=== PATIENT | male | born 1955 | race Caucasian/White ===

== ENCOUNTER → 2021-09-21 | Outpatient (CLI) | payer OTHER ==
--- NOTE | 2021-09-21 13:58 | CT ---
EXAMINATION TYPE: CT angio neck DATE OF EXAM: 09/21/2021 COMPARISON: None HISTORY: Carotid stenosis, syncope CT DLP: 424 mGycm CONTRAST: CTA cervical carotids is performed and without and with IV Contrast, patient injected with 65 ml mL o f Isovue 370. Contrast CTA of the cervical carotids was performed 3-D reconstruction imaging obtained at a separate workstation. Right carotid system: Mild plaque is seen of the right common carotid artery . Severe occlusive plaqu e right carotid bulb. Reconstitution of the occluded right ICA distally by the ECA. ECA is patent. R ight vertebral artery appears unremarkable. Left carotid system: Mild plaque is seen of the left common carotid artery. There is mild to moderat e plaque also noted at the carotid bulb. Estimated diameter reduction is 60%. ECA is patent. Left vertebral artery appears unremarkable. IMPRESSION: 1. Severe occlusive plaque right carotid bulb. Reconstitution of the occluded right ICA distally by the ECA. 2. Estimated diameter reduction Left ICA 60% NASCET criteria was used in interpretation of this exam?
== END | disposition home or self-care (01) ==
LOC: RADCTMAIN 10:22
PROVIDERS: ATTEND Internal Medicine Cardiovascular Disease
DX: I65.23 Occlusion and stenosis of bilateral carotid arteries (principal)
CPT/HCPCS: 82565; 84520; 70498; 36415; Q9967

== ENCOUNTER → 2023-09-11 | Outpatient (CLI) | payer MEDICARE ==
--- NOTE | 2023-09-11 10:52 | CT ---
EXAMINATION TYPE: CT lumbar spine wo con DATE OF EXAM: 09/11/2023 COMPARISON: 08/26/2023 HISTORY: 67-year-old male M47.26 SPONDYL WITH RADICULOP, Lower back pain for 6 months TECHNIQUE: Contiguous axial scanning of the lumbar spine without IV contrast. Coronal and sagittal re constructions performed. CT DLP: 965 mGycm Automated exposure control for dose reduction was used. FINDINGS: Degenerative bony ankylosis right SI joint. Status post wide laminectomies from L3 to S1 levels. Advanced hypertrophic facet arthropathy is present. Degenerative grade 1 retrolisthesis L1-L2, L2-L3, L3-L4, and L4-L5 with moderate degenerative disc di sease throughout. Vertebral body heights are preserved. There appears to be a component of underlying congenital spinal canal stenosis with [place] AP canal d imension of 9 mm which is at the L2 level. Disc bulging contributes to moderate to severe focal spinal canal stenosis at L2-L3 and moderate at L 1-L2. On the right, changes result in severe neuroforaminal stenosis L4-L5 and moderate at L2-L3. Mild at L 3-L4 and L5-S1. On the left, changes results in severe neuroforaminal stenosis at L4-L5 and moderate at L2-L3 and L3- L4. IMPRESSION: 1. UNDERLYING CONGENITAL SPINAL CANAL NARROWING. FOR EXAMPLE, THE [place] AP CANAL DIMENSION AT THE L2 LEVEL IS 9 MM. 2. WIDE LAMINECTOMIES FROM L3 TO S1 LEVELS. 3. ADVANCED HYPERTROPHIC FACET ARTHROPATHY AND MODERATE DEGENERATIVE DISC DISEASE THROUGHOUT. 4. DEGENERATIVE GRADE 1 RETROLISTHESIS FROM L1 THROUGH L5 LEVELS. 5. MODERATE TO SEVERE FOCAL SPINAL CANAL STENOSIS AT L2-L3 AND MODERATE AT L1-L2. 6. VARIABLE NEURAL FORAMINAL STENOSES OUTLINED ABOVE, SEVERE ON BOTH SIDES AT L4-L5.
== END | disposition home or self-care (01) ==
LOC: RADCTMAIN 08:39
PROVIDERS: ATTEND Orthopaedic Surgery
DX: M47.26 Other spondylosis with radiculopathy, lumbar region (principal); M51.16 Intervertebral disc disorders with radiculopathy, lumbar region; M43.16 Spondylolisthesis, lumbar region; M48.061 Spinal stenosis, lumbar region without neurogenic claudication; M99.73 Connective tissue and disc stenosis of intervertebral foramina of lumbar region
CPT/HCPCS: 72131

== ENCOUNTER 2024-01-01 06:14 | Day surgery (SDC) | payer MEDICARE ==
[2024-01-01] MEDS ORDERED: ALPRAZolam 0.5 MG TAB PO PRN (06:31)
[2024-01-01] MEDS ORDERED: NITROGLYCERIN SL TABS 0.4 MG TAB SUBLINGUAL PRN ×2 (06:31→09:18)
[2024-01-01] MEDS ORDERED: ALPRAZolam 0.25 MG TAB PO PRN (06:31)
[2024-01-01] MEDS: SODIUM CHLORIDE 0.9% 1,000 ML in EMPTY BAG 1 BAG IV SCH ×2 (06:54→09:40)
[2024-01-01 06:55] LABS: Glucose,Whole Blood 138 mg/dL (70-110)
[2024-01-01] MEDS ORDERED: HEPARIN SODIUM 1,000 UN/ML (10ML VL) ONE (07:16)
[2024-01-01] MEDS ORDERED: LIDOCAINE 1% INJ 10MG/ML (20 ML MDV) ONE (07:16)
[2024-01-01] MEDS ORDERED: VERAPAMIL 2.5 MG/ML 2 ML AMP ONE ×2 (07:16→08:11)
[2024-01-01] MEDS: MIDAZOLAM 2 MG/2 ML VIAL IVP ONE ×2 (07:52→08:46)
[2024-01-01] MEDS: LIDOCAINE 1% INJ 10MG/ML (20 ML MDV) SQ ONE (07:57)
[2024-01-01] MEDS: VERAPAMIL SYRINGE (5 MG/10 ML) INTRAARTER ONE (08:02)
[2024-01-01] MEDS: HEPARIN SODIUM 1,000 UN/ML (10ML VL) IVP ONE (08:03)
[2024-01-01] MEDS: fentaNYL (PF) 50 MCG/ML 2 ML AMP IVP ONE (08:03)
[2024-01-01] MEDS ORDERED: fentaNYL (PF) 50 MCG/ML 2 ML AMP ONE (08:04)
[2024-01-01] MEDS ORDERED: NITROGLYCERIN SL TABS 0.4 MG TAB SUBLINGUAL ONE (08:04)
[2024-01-01] MEDS: NITROGLYCERIN SL TABS 0.4 MG TAB SUBLINGUAL ONE (08:05)
[2024-01-01] MEDS: IOPAMIDOL-370 100ML BTL INJ ONE ×3 (08:06→09:16)
[2024-01-01] MEDS ORDERED: TICAGRELOR 90 MG TAB ONE (08:15)
[2024-01-01] MEDS: hydrALAZINE HCL 20 MG/ML 1 ML VIAL IVP ONE (08:17)
[2024-01-01] MEDS ORDERED: hydrALAZINE HCL 20 MG/ML 1 ML VIAL ONE (08:17)
[2024-01-01] MEDS: TICAGRELOR 90 MG TAB PO ONE (08:17)
[2024-01-01] MEDS: HYDROmorphone 0.5 MG/0.5 ML SYRINGE IVP ONE (08:26)
[2024-01-01] MEDS: NITROGLYCERIN 1000MCG/10ML SYRINGE INTRACORON ONE (09:01)
[2024-01-01] MEDS ORDERED: ATROPINE SULFATE 0.1 MG/ML 10ML SYRINGE IV PRN (09:18)
[2024-01-01] MEDS ORDERED: RX INFO: IV CONTRAST WAS GIVEN 1 EACH MISC MISCELLANE PRN (09:18)
[2024-01-01] MEDS ORDERED: MAG HYDROX/AL HYDROX/SIMETH 30 ML CUP PO PRN (09:18)
[2024-01-01] MEDS ORDERED: ZOLPIDEM 5 MG TAB PO PRN (09:18)
[2024-01-01] MEDS: ASPIRIN 325 MG TAB PO STA (09:40)
[2024-01-01 11:43] VITALS: RESP 16
[2024-01-01 14:39] VITALS: BMI 35.2
[2024-01-01] MEDS: ACETAMINOPHEN TAB 500 MG TAB PO PRN (17:38)
--- NOTE | 2024-01-01 18:48 | P.PCN ---
Date of Procedure: 01/01/24 Operative Findings: CARDIAC CATHETERIZATION AND PERCUTANEOUS CORONARY INTERVENTION PERFORMING PHYSICIAN: Luis Shultz MD, [facility] PROCEDURE PERFORMED: 1. Selective right and left coronary angiogram 2. Left heart catheterization 3. Successful stenting of proximal LAD using 3.5 x 33 mm Xience ROME with an excellent angiographic results 4. Successful stenting of the mid LAD using 2.5 x 23 mm Xience ROME with an excellent angiographic results 5. Adjunctive use of intravascular imaging 6. Ultrasound guided access of the right radial artery INDICATION: This is a 68-year-old gentleman with diabetes and hypertension and dyslipidemia and carotid atherosclerosis was seen in the office recently for preoperative cardiac assessment before noncardiac surgery. He was symptomatic with shortness of breath with exertion and he underwent myocardial perfusion imaging stress test showed anterior ischemia. In the light of that a heart catheterization was advised COMPLICATION: None APPROACH: Right radial artery LEVEL OF SEDATION: Moderate with the sedation time off 68 minutes PROCEDURE DESCRIPTION: After obtaining an informed consent the patient was brought to the cardiac cardiac catheterization technician. The right radial artery was cannulated using puncture technique under ultrasound guidance the micropuncture wire passed easily then I placed a 6- [place] sheath in the right radial artery. Subsequently I gave the patient 2 mg of verapamil intra-arterial and heparin intravenous was continuous ACT monitoring. Selective right and left coronary angiogram performed using JR4 and JL 3.5 catheters. Left heart catheterization was performed using the JR4 annmarie ter which across aortic valve then I did pulled back across the valve. After that I did intervene on the left anterior descending artery. SELECTIVE CORONARY ANGIOGRAM: The right coronary artery: Large caliber vessel and a dominant vessel. The RCA is calcified. The RCA has intermediate disease in the midportion appears to be in the range of 50%. Left main: Calcified with mild disease appears to be in the range of 30%. 4 cassettes into an LCx and LAD The left circumflex: Large caliber vessel and nondominant dominant vessel. The proximal LCx is angiographically normal. Gives rise into an OM1 which has mild disease by the proximal portion. Then OM 2 appears to be angiographically normal. The circumflex continue after that as a small to medium caliber vessel in the AV groove The left anterior descending artery: Large caliber vessel. The proximal LAD appears to have a tight lesion in the range of 70-80%. The mid LAD also appears to be disease up to about 70-80%. The LAD distally appears to have mild disease only. HEMODYNAMICS: The LVEDP was 20 mmHg was no significant gradient across aortic valve PCI OF THE LAD: Anticoagulation was initiated using heparin was continuous ACT monitoring. Subsequently attempting engaging the left main using CLS 3.5 guiding catheter was unsuccessful but was successful using JL 3.5 guiding catheter. I wire the LAD using a whisper wire. After that intravascular ultrasound catheter was advanced but only to the proximal LAD and could not advanced further to the mid LAD because the LAD was extremely calcified. I was able to obtain a diameter of the LAD around 3.5 mm proximally but the LAD was also extremely calcified. Pre dilatation initially was performed using 2 mm noncompliant balloon but attempting advancing 2.5 mm noncompliant balloon was an successful. Attempting advancing the balloon using guide liner also was unsuccessful. At that point I decided to wire the LAD using a run-through wire as a garland wire. I was able at that point to advance 2.5 mm x 15 mm noncompliant balloon over the run-through wire with a garland wire into place. Balloon angioplasty was performed using the 2.5 mm noncompliant balloon to the mid and proximal left anterior descending artery. After that I did advance 3.0 x 33 mm stent to the proximal left anterior descending artery with a stent was positioned under fluoroscopy guidance and deployed after the garland wire was pulled out. After that post dietitian of the proximal portion of the stent was performed using 3.5 mm noncompliant balloon. An angiogram was performed and showed a flow-limiting dissection involving the mid LAD distal to the stented segment and likely relat ed to edge dissection. I decided to cover that with the stent. I deployed 2.5 x 23 mm stent distal to the first stent with about 2 mm overlap between the first and second stents. The area of overlap was postdilated using the stent balloon. After that an angiogram was performed and at that point I decided to postdilated proximal to midportion of the first stent using 3.5 mm noncompliant balloon. I was able to achieve that over the run-through wire. Final angiogram showed excellent angiographic results and the procedure was completed was no complication CONCLUSION: Critical disease involving the proximal and mid left anterior descending artery. I performed successful stenting of the proximal and mid LAD as described above Mild disease involving the left main coronary artery Intermediate disease involving the right coronary artery POSTPROCEDURE MANAGEMENT: 1. Dual antiplatelet therapy using aspirin and Brilinta for at least 6 month 2. Aggressive cholesterol control 3. Follow-up with the patient
[2024-01-01] MEDS: TICAGRELOR 90 MG TAB PO SCH (20:12)
[2024-01-01] MEDS: CARBIDOPA-LEVODOPA 25-100 MG 1 EACH TAB PO SCH (20:12)
[2024-01-02 03:50] VITALS: PULSE 63
[2024-01-02 08:19] VITALS: BP 190/78; TEMP 97.8
[2024-01-02] MEDS: ASPIRIN 81 MG PO SCH (08:19)
[2024-01-02] MEDS: LORATADINE 10 MG TAB PO SCH (08:19)
[2024-01-02] MEDS: lisinopriL 20 MG TAB PO SCH (08:19)
[2024-01-02] MEDS: PANTOPRAZOLE 40 MG TABLET PO SCH (08:19)
[2024-01-02] MEDS: PARoxetine 10 MG TAB PO SCH (08:19)
--- NOTE | 2024-01-02 09:40 | P.DS ---
Providers Attending physician: Luis Shultz Consults: 01/01/24 09:18 Consult Physician Routine Consulting Provider: [facility] Consult Reason/Comments: Post Interventional patient Do you want consulting provider notified?: Already Contacted Primary care physician: Frannie Snell [facility] Course: The patient is a 68-year-old gentleman who underwent yesterday heart catheterization and stenting of the left anterior descending artery proximally and also in the midportion. He was seen and evaluated this morning. He is asymptomatic and he is hemodynamically stable. The right radial site is soft and nontender. No bruises. He is going to be discharged home on dual antiplatelet therapy with replacing the Plavix with brilinta and adding statin to the current medical regimen and also discontinue metformin for 48 hours. The examination is remarkable for regular rhythm with clear breathing sounds bilaterally and no edema was noted in the lower extremities the patient would be seen in the office in a week from now. Plan - Discharge Summary Discharge Rx Participant: No New Discharge Prescriptions: New Ticagrelor [Brilinta] 90 mg PO BID #180 tab Atorvastatin Calcium [Lipitor] 80 mg PO DAILY #90 tab Continue lisinopriL [Zestril] 20 mg PO QAM PARoxetine [Paxil] 10 mg PO QAM Carbidopa-Levodopa 25-100 mg [Sinemet 25-100 mg] 1 each PO HS Acetaminophen Tab [Tylenol] 1,000 mg PO Q6HR PRN PRN Reason: Pain Aspirin [Adult Low Dose Aspirin EC] 81 mg PO DAILY PRN PRN Reason: Per Protocol Pantoprazole [Protonix] 40 mg PO QAM Cetirizine HCl 10 mg PO QAM Discontinued Clopidogrel [Plavix] 75 mg PO QAM metFORMIN HCL 1,000 mg PO QAM Discharge Medication List Acetaminophen Tab [Tylenol] 1,000 mg PO Q6HR PRN 12/29/23 [History] Carbidopa-Levodopa 25-100 mg [Sinemet 25-100 mg] 1 each PO HS 12/29/23 [History] Cetirizine HCl 10 mg PO QAM 12/29/23 [History] PARoxetine [Paxil] 10 mg PO QAM 12/29/23 [History] Pantoprazole [Protonix] 40 mg PO QAM 12/29/23 [History] lisinopriL [Zestril] 20 mg PO QAM 12/29/23 [History] Aspirin [Adult Low Dose Aspirin EC] 81 mg PO DAILY PRN 01/01/24 [History] Atorvastatin Calcium [Lipitor] 80 mg PO DAILY #90 tab 01/02/24 [Rx] Ticagrelor [Brilinta] 90 mg PO BID #180 tab 01/02/24 [Rx] Follow up Appointment(s)/Referral(s): Luis Shultz MD [STAFF PHYSICIAN] - 1 Week
[2024-01-02 10:57] LABS: African American GFR (CKD) >90 (>60 ml/min/1.73 sqM); Non-African American GFR(CKD) 85 (>60 ml/min/1.73 sqM)
== END 2024-01-02 12:30 | disposition home or self-care (01) ==
LOC: CATHCVL 06:14 → 6NMEDSUR 09:15 → CATHCVL 01-02 12:30
PROVIDERS: ATTEND Internal Medicine Interventional Cardiology
DX: Z01.810 Encounter for preprocedural cardiovascular examination (principal); E11.9 Type 2 diabetes mellitus without complications; E78.5 Hyperlipidemia, unspecified; I10 Essential (primary) hypertension; Z79.02 Long term (current) use of antithrombotics/antiplatelets; Z79.84 Long term (current) use of oral hypoglycemic drugs; Z79.899 Other long term (current) drug therapy; Z95.5 Presence of coronary angioplasty implant and graft
CPT/HCPCS: 99152; 99153 ×3; 94760; 92978; 93458; 76937; 82565; C9600; C1769 ×4; C1887 ×3; C1894; C1753; C1874 ×2; C1725 ×3; J2250; J0360; J2001; J3010; J1644; J1170; Q9967; J2305

== ENCOUNTER → 2024-03-22 | Outpatient (CLI) | payer MEDICARE ==
--- NOTE | 2024-03-24 08:44 | US ---
EXAMINATION TYPE: US kidneys/renal and bladder DATE OF EXAM: 03/22/2024 COMPARISON: NONE CLINICAL INDICATION: Male, 68 years old with history of R31.0 GROSS HEMATURIA; Gross hematuria that h as since gone away, no pain, no h/o stones EXAM MEASUREMENTS: Right Kidney: 10.3 x 4.1 x 4.8 cm Left Kidney: 10.9 x 4.8 x 6.5 cm Right Kidney: No hydronephrosis or masses seen Left Kidney: No hydronephrosis or masses seen Bladder: wnl Bilateral Jets seen: Yes There is no evidence for hydronephrosis at this point in time. No nephrolithiasis is seen. No ann-marie s are identified. The urinary bladder is anechoic. Bilateral ureteral jets are seen. There is mild cortical thinning and increased echogenicity of the cortices suggestive of possibly mil d medical renal disease. IMPRESSION: Possible mild medical renal disease as described above. No hydronephrosis, solid renal mass or calcul us bilaterally.
== END | disposition home or self-care (01) ==
LOC: RADUSWWP 16:10
PROVIDERS: ATTEND Urology
DX: R31.0 Gross hematuria (principal)
CPT/HCPCS: 76770

== ENCOUNTER → 2024-05-23 | Outpatient (CLI) | payer MEDICARE ==
--- NOTE | 2024-05-24 10:02 | MR ---
EXAMINATION TYPE: MR lumbar spine wo con DATE OF EXAM: 05/23/2024 COMPARISON: 08/26/2023 HISTORY: Lower back pain, radiates into buttocks. TECHNIQUE: Multiplanar, multisequence images of the lumbar spine were acquired without IV contrast. L1-L2: Stable Moderate disc desiccation with moderate subligamentous disc bulge which effaces the heath tral thecal sac. Subligamentous herniation difficult to exclude. There is mild central stenosis noted with trefoiling of the cauda equina. L2-L3: Stable Moderate disc desiccation with subligamentous disc herniation. There is moderate centra l stenosis and bilateral neural foraminal encroachment and lateral recess stenosis. L3-L4: Decompressive laminectomy changes noted. Moderate disc desiccation and posterior disc bulge. E ffacement of the ventral thecal sac without central stenosis. Facet joint arthropathy. No disc hernia tion. L4-L5: Decompressive laminectomy changes noted. Moderate disc desiccation and posterior disc bulge. E ffacement of the ventral thecal sac without central stenosis. Facet joint arthropathy. No disc hernia tion. L5-S1: Decompressive laminectomy. No significant degenerative disc disease. No disc herniation or marybel tral stenosis. No foraminal encroachment appreciated. Lumbar segments are intact. No paraspinal masses are identified. Conus medullaris has a normal appe arance. IMPRESSION: 1. Stable central stenosis at the L1-L2. 3. Postoperative changes L3-4 through L5-S1.
== END | disposition home or self-care (01) ==
LOC: RADMRIMAIN 12:54
PROVIDERS: ATTEND Orthopaedic Surgery
DX: M48.061 Spinal stenosis, lumbar region without neurogenic claudication (principal); T81.9XXA Unspecified complication of procedure, initial encounter
CPT/HCPCS: 72148

== ENCOUNTER → 2024-11-01 | Outpatient (CLI) | payer MEDICARE ==
[2024-11-01 14:58] LABS: HCT 43.7 % (39.6-50.0); HGB 13.8 g/dL (13.0-17.0); MCHC 31.6 g/dL (32.0-37.0); MCV 91.8 FL (80.0-97.0); NRBC Per 100 WBC 0 X 10*3/uL (0.00-0.01); Platelet Count 286 X 10*3/uL (140-440); RBC 4.76 X 10*6/uL (4.40-5.60); RDW 12.8 % (11.5-14.5)
[2024-11-01 15:19] LABS: BUN/Creat Ratio 12.67 Ratio (12.00-20.00); Blood Urea Nitrogen 15.2 mg/dL (9.0-27.0); Calcium 9.8 mg/dL (8.7-10.3); Carbon Dioxide 22.3 mmol/L (21.6-31.8); Chloride 100 mmol/L (96-109); Glucose 175 mg/dL (70-110); Potassium 4.7 mmol/L (3.5-5.5); Sodium 138 mmol/L (135-145)
== END | disposition home or self-care (01) ==
LOC: LABPAT 12:15
PROVIDERS: ATTEND Orthopaedic Surgery
DX: Z01.812 Encounter for preprocedural laboratory examination (principal); M48.05 Spinal stenosis, thoracolumbar region; M47.26 Other spondylosis with radiculopathy, lumbar region; Z22.322 Carrier or suspected carrier of Methicillin resistant Staphylococcus aureus
CPT/HCPCS: 80048; 85027; 85610; 86850; 86900; 86901; 87070

== ENCOUNTER 2024-11-03 05:38 | Day surgery (SDC) | payer MEDICARE ==
[~2024-11-03 05:38] MED LIST: TRANEXAMIC 1,000 MG/100ML-NACL 1,000 MG in SALINE 1 100ML.BAG IVPB PRN
[2024-11-03] MEDS ORDERED: LIDOCAINE 1% (10MG/ML) FOR IV START INTRADERMA PRN (06:04)
[2024-11-03] MEDS: ACETAMINOPHEN TAB 500 MG TAB PO PRN (07:15)
[2024-11-03] MEDS: GABAPENTIN 300 MG CAP PO PRN (07:15)
[2024-11-03] MEDS: ONDANSETRON 4 MG/2 ML VIAL IVP PRN (07:17)
[2024-11-03] MEDS: DEXAMETHASONE SOD PHOSPHATE 4 MG/ML 1 ML VIAL IV ONE (07:17)
--- NOTE | 2024-11-03 07:17 | P.ANPRN ---
Procedure Note - Anesthesia - Invasive Line Left Arterial Line Time Out Performed: Yes Date of Procedure: 11/03/24 Time of Procedure: 07:00 Location of Patient: PreOp Preparation: Sterile Prep Arterial Line Location: Radial Ultrasound Used: Yes Purpose - Visualization and Identification of Vasculature: Yes Image Stored and Saved: Yes Narrative: Invasive line placement per sterile protocol utilized.[id number]
--- NOTE | 2024-11-03 07:23 | P.HPOR ---
History of Present Illness H&P Date: 11/03/24 Date: 11/03/23 : 07:14am Title: [facility] PRE-OPERATIVE HISTORY AND P JEN Age: 68 year Height: 5'11" Weight: 245 lbs BMI: 34.17 kg/m2 Occupation: Retired VAS: 8 CC: Pre-operative evaluation for T12-L3 laminectomy HISTORY: Mr. Jones presents to the office today for pre-operative evaluation. The patient reports worsening symptoms since his last visit. While he experienced some improvement during the summer months, his condition has significantly deteriorated. He describes persistent throbbing, burning pain throughout his entire low back that now radiates more intensely down into the bilateral lower extremities, through his thighs and into his feet, with a sharp, shooting quality. His leg pain continues to be associated with numbness and tingling bilaterally, and he reports progressive bilateral leg weakness. The patient continues to have significant difficulty completing regular activities of daily living due to his worsening symptoms. He reports severe sleep disturbances related to his ongoing pain and associated symptoms. Previous conservative tr eatment measures have provided only mild, temporary relief. He continues taking OTC Tylenol for symptom management. The patient denies any f/c/sob/cp, perineal numbness or tingling, bowel or bladder incontinence/retention. Patient remains ambulatory independently. The patients' past social, medical, family, surgical history, as well as review of systems, have been reviewed. Please refer to the Neurosurgery History and Physical form that has been scanned into our electronic medical record system. 16 points review of systems completed and as stated in HPI, all other systems reviewed are negative. PAST TREATMENTS: PAST IMAGING: - Yes - reviewed again today, findings confirmed TRAUMA RELATED: - No WORK RELATED: - No PT IN LAST 6 MONTHS: - Yes; no relief PHYSICIAN DIRECTED HOME EXERCISE PROGRAM: - Yes; no relief ACTIVITY MODIFICATION: - Yes MEDICATIONS: - OTC Tylenol ALTERNATIVE INTERVENTIONS (CHIROPRACTIC, ACUPUNCTURE, MASSAGE, RICE): - Yes (home heat/ice therapies & rest); mild, temporary relief BRACING: - No INJECTIONS (DESI, TF, RFA): - Yes x5-6 lumbar injections at pain management (no relief) - h/o lumbar rhizotomy; no relief MEDICAL HISTORY: Past Medical History: Reviewed, see appropriate section of the chart for details. Past Spine Surgical History: None Social History: Reviewed, see appropriate section of the chart for details. Family History: Reviewed, see appropriate section of the chart for details. Current Medications: Rx: atorvastatin 40 mg tablet Ref: 0 Instructions: take 1 tablet (40 mg) by oral route once daily Rx: carbidopa-levodopa Ref: 0 Rx: cetirizine 10 mg tablet Ref: 0 Instructions: take 1 tablet (10 mg) by oral route once daily Rx: hydroCHLOROthiazide 12.5 mg capsule Ref: 0 Instructions: take 1 capsule (12.5 mg) by oral route once daily Rx: lisinopriL 20 mg tablet Ref: 0 Instructions: take 1 tablet (20 mg) by oral route once daily Rx: metFORMIN 1,000 mg tablet Ref: 0 Rx: pantoprazole 40 mg tablet,delayed release Ref: 0 Instructions: take 1 tablet (40 mg) by oral route once daily Rx: PARoxetine 10 mg tablet Ref: 0 Rx: TylenoL Ref: 0 Rx: Brilinta Ref: 0 PHYSICAL EXAM: General: AOX3, NAD, Well hydrated, Well nourished HEENT: No lumps or masses Extremities: No color changes, no pooling INTEGUMENT: Appearance: Normal color and turgor Surgical Incisions: None Hairy Patches: ABSENT Dorsal Skin Dimples: Normal [employer] spots: ABSENT PALPATION: TTP Midline: NO Paracervical: NO Parathoracic: NO Paralumbar: YES SIJ TESTING: TTP (NONE) Nigel's Finger: - FABER4: - Compression: - | Distraction: - Thigh thrust: - | Hip thrust: - POSTURAL BALANCE: Coronal: BALANCED Sagittal: BALANCED Shoulder height: LEVEL Pelvic Girdle: LEVEL ROM AND APPEARANCE: Neck: UNRESTRICTED Lumbar: RESTRICTED Shoulders: Symmetrical Hips: Symmetrical Knees: Symmetrical Hands: Symmetrical Feet: Symmetrical VASCULAR STATUS: RUE- 2 LUE-2 RLE-2 LLE-2 Edema: NONE NEUROLOGICAL EXAMINATION: Mental Status: Awake, alert, oriented fully with normal attention, concentration and memory. Fluent appropriate speech. CRANIAL NERVES: I: Olfactory not tested. II: Visual acuity normal, no visual field deficit noted with confrontation. III,IV: Normal pupillary reflexes & intact extraocular movements without nystagmus. V,: Intact symmetrical facial sensation. VII: Intact symmetrical facial motor movementVIII: Hearing intact. IX,X: Intact gag, swallow, & normal voice. XI: Sternocleidomastoid, trapezius function intact. XII: Tongue midline with normal movements. TENSIONING: L'HERMITTE'S SIGN NEG SPURLUNG'S SIGN NEG CUBITAL COMPRESSION NEG TINELS AT WRIST NEG SLR/CROSSED SLR POS MOTOR EXAM (0-5/5, NT) Muscle appearance: Symmetrical, without signs of atrophy or dystrophy UPPER EXTREMITY RIGHT LEFT Shoulder Abduction 5 5 Biceps 5 5 Triceps 5 5 Wrist Extension 5 5 Hand Intrnsics 5 5 [employer] 5 5 LOWER EXTREMITY RIGHT LEFT Hip Flexion 4 4- Knee Extension 4 4 Knee Flexion 4 4 Dorsiflexion 4 4+ Plantarflexion 5 5 EHL 5 5 FHL 5 5 REFLEXES (0-4/2, NT): RIGHT LEFT Bicep 2 2 Brachioradialis 2 2 Tricep 2 2 Patellar 2 2 Achilles 2 2 PATHOLOGICAL REFLEXES: RIGHT LEFT CARLOS'S ABSENT ABSENT CLONUS ABSENT ABSENT BABINSKI ABSENT ABSENT Rectal Tone: INTACT SENSATION (0-4, NT): RUE-2 LUE-2 RLE- 2 LLE-2 Dermatomal deficit: L1-3 b/l GAIT AND FUNCTIONAL EVALUATION: -Ambulatory aids - INDEPENDENT - Romberg's test - NEG - Hand and finger dexterity intact bilaterally? YES - Dysdiadochokinesia examination negative bilaterally? YES - Toe heel walk / heel-toe walk intact while maintaining satisfactory balance? YES - Squatting/straightening w/o assistance to a min of 60 degree knee flexion? YES - Single leg stance: ABLE - Trendelenburg sign NEGATIVE B/L IMAGING STUDIES FINDINGS XRAY Prior imaging reviewed and findings confirmed CT Prior imaging reviewed and findings confirmed MRI Prior imaging reviewed and findings confirmed IMPRESSION: It was my pleasure to have seen and examined Mr. Jones for his pre-operative evaluation. I reviewed the patient's clinical syndrome, physical findings, and imaging studies during the appointment today. It is my impression that the patient has a diagnosis of: 1. 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 Low back pain 3. Neurogenic claudication PLAN: THERAPIES -Cont with ice as warranted -Cont with supplementation Vit D, Vit C, Ca2+, High protein diet -OK for massage or other alternative treatment modalities as able. If it exacerbates your sx do not continue ACTIVITY -Avoid excessive or heavy BLPPT MEDICATIONS -Take as directed -Cont home medications as directed by your PCP. Check with your PCP for any medication interactions or issues if needed. IMAGING -Prior imaging reviewed and findings confirmed. No additional imaging needed at this time. SURGICAL RECOMMENDATION -Proceed with T12-L3 laminectomy as planned DISCUSSION: The patient's condition has worsened since previous visits, with increased pain radiating from his low back through his thighs and into his feet. While he experienced some improvement during the summer months, his symptoms have significantly deteriorated. Given the progression of symptoms and confirmation of imaging findings, we will proceed with the planned T12-L3 laminectomy with possible fusion L2-3. The patient continues to understand all risks, benefits, and alternatives to the procedure and wishes to proceed. The patient has been cleared for surgery and understands all pre-operative instructions. All questions have been answered to their satisfaction. FOLLOW UP: Post Procedure PATIENT EDUCATION: Medications Reviewed: YES Thank you again for allowing us to be part of your patient's care. Please don't hesitate to contact me if you have any further questions. Signed and authenticated by: Wilfredo Pulliam [facility] [address] [place] [address] This message is confidential, intended only for the named recipient(s) and may contain information that is privileged or exempt from disclosure under applicable law. If you are not the intended recipient(s), you are notified that the dissemination, distribution or copying of this information is strictly prohibited. If you received this message in error, please notify the sender then delete this message. # SIGNED BY Wilfredo Juares (GOO) 11/03/2023 07:14AM Past Medical History Past Medical History: Diabetes Mellitus, Hyperlipidemia, Hypertension, Osteoarthritis (OA), Pneumonia, Prostate Disorder, Syncope Additional Past Medical History / Comment(s): Recent test last week, Dec 21- showed leaking valve, arthritis to back, enlarged prostate, "I passed out before they dicovered I had a blockage to my caratid artery 2 years ago, NIDDM , peptic ulcer,restless legs. History of Any Multi-Drug Resistant Organisms: None Reported Past Surgical History: Back Surgery, Heart Catheterization With Stent Additional Past Surgical History / Comment(s): Bx of prostate, Lt carotid endarterectomy. Past Anesthesia/Blood Transfusion Reactions: No Reported Reaction Additional Past Anesthesia/Blood Transfusion Reaction / Comment(s): no blood tx hx Date of Last Stent Placement:: 12/2023 Smoking Status: Never smoker - Past Family History Father History Unknown: Yes Medications and Allergies Home Medications Medication Instructions Recorded Confirmed Type Acetaminophen Tab [Tylenol] 1,000 mg PO Q6HR PRN 12/29/23 11/03/24 History Carbidopa-Levodopa 25-100 mg 1 each PO HS 12/29/23 11/03/24 History [Sinemet 25-100 mg] Cetirizine HCl 10 mg PO QAM 12/29/23 11/03/24 History PARoxetine [Paxil] 10 mg PO QAM 12/29/23 11/03/24 History Pantoprazole [Protonix] 40 mg PO QAM 12/29/23 11/03/24 History lisinopriL [Zestril] 20 mg PO QAM 12/29/23 11/03/24 History Aspirin [Adult Low Dose Aspirin EC] 81 mg PO DAILY 01/01/24 11/03/24 History Atorvastatin Calcium [Lipitor] 80 mg PO DAILY #90 tab 01/02/24 11/03/24 Rx Ticagrelor [Brilinta] 90 mg PO BID #180 tab 01/02/24 11/03/24 Rx metFORMIN HCL 1,000 mg PO BID 10/31/24 11/03/24 History Allergies Allergy/AdvReac Type Severity Reaction Status Date / Time No Known Allergies Allergy Verified 11/03/24 06:16 Physical Examination Osteopathic Statement: *. No significant issues noted on an osteopathic structural exam other than those noted in the History and Physical/Consult.
[2024-11-03 07:24] LABS: Glucose,Whole Blood 133 mg/dL (70-110)
[2024-11-03] MEDS ORDERED: LIDOCAINE 1% INJ 10MG/ML (20 ML MDV) ONE (07:30)
[2024-11-03] MEDS ORDERED: NEOSTIGMINE 1 MG/ML 10 ML VIAL ONE (07:30)
[2024-11-03] MEDS ORDERED: ROCURONIUM 10 MG/ML (5 ML VIAL) IV ONE (07:30)
[2024-11-03] MEDS ORDERED: ePHEDrine 50 MG/ML 1 ML VIAL ONE (07:30)
[2024-11-03] MEDS ORDERED: PHENYLEPHRINE 10 MG/ML VIAL ONE (07:30)
[2024-11-03] MEDS ORDERED: SUCCINYLCHOLINE CHLORIDE 200 MG/10 ML VIAL IV ONE (07:30)
[2024-11-03] MEDS ORDERED: fentaNYL (PF) 50 MCG/ML 2 ML AMP ONE (07:30)
[2024-11-03] MEDS ORDERED: PROPOFOL 10 MG/ML 20 ML VIAL IV ONE (07:30)
[2024-11-03] MEDS ORDERED: GLYCOPYRROLATE 0.2 MG/ML 2 ML VIAL ONE (07:30)
[2024-11-03] MEDS ORDERED: KETAMINE HCL IN 0.9 % NACL 50 MG/5 ML SYRINGE ONE (07:30)
[2024-11-03] MEDS: IV FLUID CONTINUATION 1,000 ML IV ONE (07:36)
[2024-11-03] MEDS: MIDAZOLAM 2 MG/2 ML VIAL IV ONE (07:46)
[2024-11-03] MEDS: THROMBIN (BOVINE) 5,000 UNIT VIAL TOPICAL ONE (08:20)
[2024-11-03] MEDS: LACTATED RINGERS 1,000 ML IV ONE ×2 (09:30→10:22)
[2024-11-03] MEDS: ceFAZolin 3,000 MG in SODIUM CHLORIDE 0.9% IRRIGATIO 3,000 ML IRRIGATION ONE (09:37)
[2024-11-03] MEDS: GENTAMICIN 80 MG in SODIUM CHLORIDE 0.9% IRRIGATIO 3,000 ML IRRIGATION ONE (09:38)
[2024-11-03] MEDS: BUPIVACAINE (PF) 0.5% 30 ML VIAL SQ ONE (10:10)
[2024-11-03] MEDS: LIDOCAINE 2%-EPI 1:100,000 20 ML VIAL SQ ONE (10:11)
--- NOTE | 2024-11-03 10:38 | P.OP ---
Date of Procedure: 11/03/24 Preoperative Diagnosis: 1. STENOSIS T12-L3, MODERATE TO SEVERE 2. 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 NEUROGENIC CLAUDICATION 4. LE RADICULOPATHY 5. LE WEAKNESS 6. LOW BACK PAIN Postoperative Diagnosis: 1. STENOSIS T12-L3, MODERATE TO SEVERE 2. 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 NEUROGENIC CLAUDICATION 4. LE RADICULOPATHY 5. LE WEAKNESS 6. LOW BACK PAIN Procedure(s) Performed: 1. L2-3 POSTEROLATERAL AND INTERBODY FUSION 2. L2-3 NONSEGMENTAL INSTRUMENTATION 3. T12-L3 BILATERAL LAMINECTOMY. WITH PARTIAL MEDIAL FACETECTOMY AND FORAMINOTOMY AT T12-L1; L1-2 AND COMPLETE FACETECOMTY AND FORAMINOTOMY AT L2-3 DUE TO STENOSIS AND NEED FOR FURTHER DECOMPRESSION. THIS WOULD CAUSE INSTABILITY IN THE SPINE WHICH IS THE REASON FOR THE FUSION AND STABILIZATION. 4. INSERTION OF BIOMECHANICAL DEVICE L2-3, CAGE X1 Implants: -JANES EVEREST RODS AND SCREWS -JANES TRITANIUM 9MM CAGE -DBM, AUTOGRAFT, ALLOGRAFT Anesthesia: NANDOA Surgeon: Wilfredo Juares Prep Room Supervisor #1: Bassam Coreas (WAS PRESENT AND ASSISTED WITH ALL ASPECTS OF THE CASE FROM POSITION TO DRESSING PLACEMENT) Estimated Blood Loss (ml): 120 IV fluids (ml): 1,200 Urine output (ml): 300 Pathology: other (L2-3 INTERVERTEBRAL DISC) Condition: stable Disposition: PACU Indications for Procedure: Spine Surgery Clinical and Risk Review Hiral Jones is a 68-year-old male presenting for evaluation of low back pain bilateral hip pain and leg pain as well as groin pain. It was my pleasure to have seen and examined Hiral Jones. In our visit today we have had a chance to go over subjective complaints, physical examination findings and treatments including the natural course history without intervention and various interventional options. The patients imaging demonstrates severe stenosis with spondylosis L2-L3 with stenosis T12-L1 L1-L2 facet overgrowth as well as facet hypertrophy ligamental hypertrophy status post laminectomy L3-L5 with exuberant scar formation L2-3 L3- 4. No acute fracture dislocation or lesion noted. On physical exam, Hiral demonstrates neurogenic claudication lower extremity radiculopathy pain low back pain pressure feeling clicking feeling pain with sidebending and rotation as well as flexion. Pain that travels down the front of his legs and into his feet. Reasonable strength in his bilateral lower extremities however is decreased as 4 - to 4/5 in all major muscle groups. Negative clonus Babinski's and Oly's. I have explained to the patient that as their condition progresses it will cause further neurological deficits and eventual paralysis. Based on the patients imaging, physical exam, and the rapid progression and disabling nature of their symptoms, at this time I recommend surgery in the form or a: T12-L3 decompressive laminectomy with possible fusion L2-L3. I discussed the risk and benefits of this procedure at length with Hiral Jones. The patient agreed to considered pursuing the procedure abovementioned. Prior to surgery, she should follow up with her PCP (Cardio, ID, IM etc) for clearance. Questions were invited and answered, and the patient wishes to proceed as outlined below. I discussed with Hiral at length the possibility of fusion at L2-L3 due to the need for decompression that would destabilize the spine at this level. He understood and was comfortable with this. Currently, I am recommendin. T12-L3 decompressive laminectomy with possible fusion L2-L3 2. Follow up with PCP for surgical clearance 3. Review of surgical risks and benefits as well as an educational packet on the proposed surgical procedure. Risks: All surgical procedures come with inherent risks, including those related to positioning, anesthesia, intraoperative findings, and postoperative complications. It is important to understand that surgery does not come with any guarantee of a successful outcome as complications and adverse events are always possible. The patient was given a handout in office today discussing the surgical procedure and risks associated with the intervention, both of which were discussed with the patient. These risks include but are not limited to the following: * Experiencing same, different or even worse symptoms in back, neck, arms, or legs compared to before surgery. * Requiring further surgery or other forms of treatment presently or at some time in the future at same or other levels of the intended spine surgery. * On an extreme but fortunately relatively rare basis severe complication such as blindness, stroke, heart attack, temporary and/or permanent nerve injury, paralysis, coma, or may occur, sometimes without known explanati on. * Surgical complications may include but are not limited to risk of infection, fluid accumulation in the surgical dissection site, including a seroma or hematoma, that requires additional surgery, wound drainage, bleeding, new numbness or weakness, vision changes/loss, spinal fluid leakage, non-healing and/or infected incision, headaches, difficulty or inability to swallow, hoarseness, hemopneumothorax, pneumothorax, impotence, retrograde ejaculation, vaginal dryness; injury to nerves, spinal cord, blood vessels, lymphatics or other vital organs (i.e., bowel injury, injury to the great vessels); heterotopic bone formation; complications related to the hardware such as screws, rods, cages including misplaced hardware, device failure, instrumentation at the wrong spine level, hardware fracture/breakage, or hardware loosening; vertebral failure of the spinal column above or below the newly placed hardware; retained surgical instrumentations or devices and the need for further surgery. * Medical risks of the planned spine surgery include but are not limited to generalized Infections to the whole body or local areas outside of the surgical site (sepsis), heart attack, bleeding, anaphylaxis, meningitis, seizure, epilepsy, hearing loss, burn pulido, laceration of the head or other areas of the body, bruising, hypersensitivity of the skin, bladder over distension; allergic reaction; shoulder injury related to positioning; fat, blood and air clots to other areas of the body like heart, lungs, brain; failure of internal organs such as lungs, kidneys, liver and excessive bleeding. If blood transfusions are necessary, note that transfusions may cause intolerance reactions such as anaphylaxis or other complex reactions. * Despite best efforts, the results of spine surgery might not heal in terms of bone, soft tissues such as skin, fascia, ligaments, and joints. Additionally, in order to achieve best possible results, spine surgery may be carried out beyond the initially planned levels and involve decompression, fusion including insertion of hardware at levels other than the original intended area of surgical interest change some portions of the procedure in order to ensure the best possible outcomes. * With spine surgery and spinal fusion, there are different off label uses of instrumentation (devices, implants and hardware) as well as biological substan samir (bone morphogenic proteins, demineralized bone matrix) as well as using extra bone from allograft sources (i.e. cadaver bone) or autograft (iliac crest bone, ribs, or the spine itself). The patient has been given information about these practices and their inherent risks and benefits. The patient has had a chance to review all the listed information, has been given print outs detailing this information, and has had all his/her questions answered to their satisfaction. It was my pleasure to have seen and examined Hiral Jones. In our visit today we have had a chance to go over my understanding of our patient's current condition, the natural course history without intervention and various interventional options. Questions were invited and answered, and the patient wishes to proceed as outlined above. I have seen and examined the patient for 25 minutes and we have spent more than 50% of the time in repeat and detailed counseling about the patient's condition, its natural course history with out and as much as can be predicted with surgery and re-review of various surgical treatment options. In conclusion, Hiral Jones and his requested we proceed with the above suggested surgery and are willing to accept risks and limitations of the suggested surgery as nature of the disease process and our best attempts at treatment for the condition. Thank you again for allowing us to be part of your patient's care. Please don't hesitate to contact me if you have any further questions. Signed and authenticated by: Wilfredo Pulliam [facility] [address] [place] [address] Description of Procedure: T12-L3 LAMINECTOMY WITH L2-3 PLIBF The patient was seen and examined in the preoperative area. All preoperative protocols were followed. Informed consent was obtained, risks and benefits of the procedure were discussed at length. Risks including bleeding infection damage to the surrounding tissue and risk of reoperation were discussed with the patient. Risk of anesthesia up to and including was discussed with the patient. These are outlined in the risk review. They were willing to accept these risks and all of the risks of surgery. The patient was given a weight- based dose of antibiotics in the form of [Ancef]. The patient was seen and evaluated by the anesthesia team who deemed them fit for surgery. The site was marked, the patient was willing to proceed with the procedure. The patient was transferred to the operative suite by the Department of anesthesia. They were then drifted off to sleep by the department anesthesia and [GETA] was performed. The patient tolerated this well. [Roberts catheter was placed by nursing staff, atraumatically]. Once confirmation of lines and ventilation the patient was transferred to a [prone Jun table very carefully]. All bony prominences including wrists, elbows, axilla, chest, hips, and thighs, and feet were padded very well. Special attention was paid to the genitalia and these were padded accordingly. SCDs were placed on bilateral lower extremities and were connected. Arms were well padded and placed [on arm boards up and out in the 90/90 position]. Once in position, again we confirmed good ventilation capabilities and that lines were running appropriately. The patient's [Lumbar] spine was then exposed. 1010s were placed outlining the incision site. Standard alcohol was used to clean the incision site and allowed to dry. C-arm was used to biomark the patient and confirm level for incision which was marked with a skin marker. Operative briefing was performed with all teams and everyone in agreement to proceed. The patient was then prepped and draped in a normal sterile fashion. Timeout was then performed and all parties were in agreement with the procedure to be performed. Midline skin incision made and subperiosteal dissection taken down over the lamina of T12-L3/4. Facet joints located and PL gutters exposed. [place] 4 was placed at the pars of L2 to hiral and lateral image taken to confirm levels for operation. Bilateral laminectomy, partial medial facetectomy and foraminotomies were then performed at L2-3 using high speed joe, 2-0 upbiting curette, 6-0 kerrison and 4-0 kerrison rongeurs. Ligamentum was removed. Deep facet joints capsule was removed along with cysts that were found deep from the facets. Foraminotomies done with kerrison and checked with a Narayan ball probe. Once decompression completed, meticulous hemostasis was done with floseal, paddies and gel foam. It was found that there was still severe lateral recess and foraminal stenosis as well as stenosis that extended down to the L3-4 region due to the previous surgery and exhuberent scar tissue and dural scarring. It was elected at this point for further decompression however in doing so would destabilize the spine and so using freehand technique and under lateral fluoroscopy screws were placed bilateral pedicles at L2 and L3 without issues. [place] used to create starting point, pedicle finder used to create path and ball tip probe used to confirm within pedicle. Screw was then measured and placed. AP and LAT images confirmed good placement. The wound was irrigated. We then continued with decompression down to the previous wound bed at L3-4 region where there was extensive dural scarring. We then went up to T12/L1 region with bilateral laminectomy, partial medial facetectomy and foraminotomy using similar technique. This was adequate decompression at these levels. Narayan probe confirmed good decompression of all levels. Fluroscopy with markers confirmed levels of decompression. We then inspected the disc space at L2-L3 the disc at this level was extremely collapsed and there is a large disc herniation which was removed and removing it we noted that the disc had a foul smell to it and discoloration so this was sent for further investigation to pathology. We then elected for interbody placement at this level for orthodoxy of alignment lordosis and removal of complete disc in this area. Osteotome was used to access the disc base while protecting neural elements we then sequentially shaved and removed disc material completely using curettes pituitary rongeur ranjeet and osteotome. Once complete discectomy was performed autograft deep and DBM as well as allograft was placed anterior within the disc space the cage was then selected and under lateral fluoroscopy was impacted into position while protecting neural elements. Cage was placed in a good position was tested and was stable. AP and lateral confirm good placement. We then turned our attention to anabela placement. We then placed measured rods with set screws into pedicle screws and final tightened set screws. PL gutter was decorticated with high speed joe. Autograft and allograft placed in the PL gutters and packed down. Surgicel placed over the dura which was inspected and had no injury. The wound bed was then irrigated with 6 L Abx Anfect and Gen 2L Irricept followed by 6L NSS. The wound was inspected. Good decompression noted with no injury. X Ray taken AP and lateral with markers to hiral the decompression. Surgicel was placed on the dura. 2g Vanco powder placed in the wound. No drain was placed as the wound bed was dry. We then proceeded with closure. #1 PDS placed in the facia. 0 Vicryl placed in the deep subq and 2-0 in the superficial. Jaquan placed in the skin. Wound edges approximated very well. The wound was then cleaned and dressed sterilly with adaptic, 4x4, abd and medipore tape. The patient was transferred back to their hospital bed atraumatically. Patient was then awakened and extubated by the department of anesthesia having tolerated the procedure very well with no complications. They were transferred to the postoperative care unit in stable condition.
[2024-11-03] MEDS ORDERED: SENNOSIDES-DOCUSATE SODIUM 1 EACH TAB PO PRN (10:48)
[2024-11-03] MEDS ORDERED: MAGNESIUM HYDROXIDE 2,400 MG/30 ML CUP PO PRN (10:48)
--- NOTE | 2024-11-03 10:54 | XR ---
EXAMINATION TYPE: XR lumbar spine 2 or 3V, FL guidance operating room DATE OF EXAM: 11/03/2024 10:44 AM COMPARISON: Pre Operative Images if available both CT/MRI or plain film CLINICAL INDICATION: Male, 68 years old with history of LUMBAR LAMINECTOMY WITH DECOMP; TECHNIQUE: XR lumbar spine 2 or 3V, FL guidance operating room, multiple fluoroscopic images provided for procedure. Total fluoroscopy time: 43 seconds Total submitted images to PACS: 7 DAP: 20.100 mGym2 Gycm2 uGym2 cGycm2 or equivalent. FINDINGS: Fluoroscopic images during internal fixation/arthroplasty demonstrate intraoperative hardware and fix ation hardware which appear intact.. Hardware appears intact. No immediate complication identified. IMPRESSION: 1. No evidence for intraoperative complication. 2. Please see the operative/procedural note for further details. [facility], , 11/03/2024 10:52 AM
[2024-11-03] MEDS: HYDROmorphone 0.5 MG/0.5 ML SYRINGE IVP PRN (11:12)
[2024-11-03 11:19] LABS: Glucose,Whole Blood 172 mg/dL (70-110)
[2024-11-03] MEDS: LACTATED RINGERS 1,000 ML IV SCH (13:24)
[2024-11-03] MEDS: droPERidol 5 MG/2 ML VIAL IVP ONE (13:24)
[2024-11-03] MEDS: ONDANSETRON 4 MG/2 ML VIAL IVP ONE (13:25)
[2024-11-03] MEDS: CYCLOBENZAPRINE 5 MG TAB PO PRN (13:49)
[2024-11-03] MEDS: HYDROcodone/APAP 10-325MG 1 EACH TAB PO PRN (13:49)
[2024-11-03] MEDS: ACETAMINOPHEN TAB 325 MG TAB PO SCH (13:49)
[2024-11-03] MEDS: HYDROmorphone 1 MG/ML 1 ML SYRINGE IVP PRN (15:08)
[2024-11-03] MEDS: GABAPENTIN 300 MG CAP PO SCH (15:08)
[2024-11-03 16:26] LABS: Glucose,Whole Blood 145 mg/dL (70-110)
[2024-11-03] MEDS ORDERED: DEXTROSE 50% SYRINGE 50 ML IVP PRN ×2 (16:59)
[2024-11-03] MEDS: INSULIN ASPART (NovoLOG) 100 UNIT/ML VIAL SQ SCH (17:03)
[2024-11-03] MEDS: metFORMIN 500 MG TAB PO SCH (17:18)
[2024-11-03] MEDS: ATORVASTATIN 80 MG TAB PO SCH (17:19)
[2024-11-03] MEDS: lisinopriL 20 MG TAB PO SCH (17:19)
[2024-11-03] MEDS: PANTOPRAZOLE 40 MG TABLET PO SCH (17:44)
[2024-11-03] MEDS: PARoxetine 10 MG TAB PO SCH (17:44)
[2024-11-03] MEDS: CARBIDOPA-LEVODOPA 25-100 MG 1 EACH TAB PO SCH (20:31)
[2024-11-03 20:58] LABS: Glucose,Whole Blood 162 mg/dL (70-110)
--- NOTE | 2024-11-03 23:50 | CT ---
EXAMINATION TYPE: CT lumbar spine wo con DATE OF EXAM: 11/03/2024 6:32 PM COMPARISON: 09/11/2023. CLINICAL INDICATION: Male, 68 years old with history of s/p L1-L3 decompr fusion; [facility], POST OP TECHNIQUE: Multiple axial images were obtained from the midportion of T11 through the sacroiliac erik nts. Soft tissue and bone windows in coronal and sagittal planes were obtained and reviewed. 3-D ref ormats of the bones were created on a separate workstation and submitted for review. Contrast used: mL of , (None, if empty). Oral contrast used: (None, if empty). CT DLP: 1392 mGycm, Automated exposure control for dose reduction was used. FINDINGS: 1. Postsurgical changes to the lumbar spine with fixation hardware at L2 and L3. Discectomy at L2 and L3. Hardware limits evaluation at these levels. Hardware appears intact. No evidence of fracture. Postsurgical changes in the soft tissues with foci of gas present. Atherosclerosis of the arterial va sculature. Moderate degeneration changes of the spine with osteophyte formation and facet joint arthr opathy. Degeneration changes of the sacroiliac joint. IMPRESSION: Postsurgical changes without evidence of immediate post operative complication. [facility], , 11/03/2024 11:48 PM
[2024-11-04] MEDS: HYDROmorphone 0.5 MG/0.5 ML SYRINGE IVP PRN (00:18)
[2024-11-04] MEDS: HYDROcodone/APAP 5-325MG 1 EACH TAB PO PRN (05:54)
[2024-11-04 06:37] LABS: Glucose,Whole Blood 177 mg/dL (70-110)
[2024-11-04 08:44] LABS: Basophils # (A) 0.02 X 10*3/uL (0.00-0.10); Basophils % (A) 0.2 %; Eosinophils # (A) 0.03 X 10*3/uL (0.04-0.35); Eosinophils % (A) 0.3 %; HCT 38.3 % (39.6-50.0); HGB 12.1 g/dL (13.0-17.0); Lymphocytes # (A) 1.16 X 10*3/uL (0.90-5.00); Lymphocytes % (A) 11.5 %; MCH 29.2 pg (27.0-32.0); MCHC 31.6 g/dL (32.0-37.0); MCV 92.5 FL (80.0-97.0); Mean Platelet Volume 11.5 FL (9.5-12.2); Monocytes # (A) 0.91 X 10*3/uL (0.20-1.00); NRBC Per 100 WBC 0 X 10*3/uL (0.00-0.01); Neutrophils # (A) 7.94 X 10*3/uL (1.80-7.70); Neutrophils % (A) 78.6 %; Platelet Count 249 X 10*3/uL (140-440); RBC 4.14 X 10*6/uL (4.40-5.60); RDW 12.9 % (11.5-14.5)
[2024-11-04 08:55] LABS: BUN/Creat Ratio 11.38 Ratio (12.00-20.00); Blood Urea Nitrogen 14.8 mg/dL (9.0-27.0); Carbon Dioxide 23.9 mmol/L (21.6-31.8); Chloride 103 mmol/L (96-109); Glucose 156 mg/dL (70-110); Potassium 4.1 mmol/L (3.5-5.5); Sodium 138 mmol/L (135-145)
--- NOTE | 2024-11-04 11:39 | P.PN ---
Subjective Progress Note Date: 11/04/24 Principal diagnosis: 1. STENOSIS T12-L3, MODERATE TO SEVERE 2. 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 NEUROGENIC CLAUDICATION 4. LE RADICULOPATHY 5. LE WEAKNESS 6. LOW BACK PAIN Patient was seen at bedside this morning lying in the semirecumbent position with dressing over thoracolumbar spine. Patient says she did get up with therapy earlier this morning and walked around the room and into the hallway up and down steps. Patient says he has urinated since surgery yesterday without issue. Patient says pain is well-controlled with oral medication. Patient d enies any other orthopedic complaints at this time. Patient is looking forward to going home later today. Objective - Vital Signs Vital signs: Vital Signs Temp 98.8 F 11/04/24 07:29 Pulse 87 11/04/24 07:29 Resp 18 11/04/24 07:29 BP 172/75 11/04/24 07:29 Pulse Ox 94 L 11/04/24 07:29 FiO2 Intake & Output 11/03/24 11/04/24 11/04/24 18:59 06:59 18:59 Intake Total 2452 Output Total 720 1000 Balance 1732 -1000 Weight 109 kg Intake: IV 2452 Output: Urine 600 1000 Uretheral (Roberts) 100 Estimated Blood Loss 120 - Exam Incision is clean, dry, intact over thoracolumbar spine. [place] are well aligned and intact. Negative for any active drainage. Dressing was changed at bedside. Sensation is equal, symmetric, bilaterally intact. There is fair amount of tenderness to palpation over incision on spine. Nontender to palpation on rest of exam. Patient does have full range of motion throughout bilateral upper extremities on exam. There is some limited range of motion in the bilateral hips and knees in flexion extension secondary to referred stiffness to the low back. Negative Homans bilaterally. Radial pulse intact, 2+ bilaterally. Cap refill under 3 seconds in digits of upper extremities. - Labs CBC & Chem 7: 11/04/24 04:28 11/04/24 04:28 Labs: Abnormal Lab Results - Last 24 Hours (Table) 11/03/24 11/03/24 11/03/24 Range/Units 11:17 16:25 20:57 WBC (4.50-10.00) X 10*3/uL RBC (4.40-5.60) X 10*6/uL Hgb (13.0-17.0) g/dL Hct (39.6-50.0) % MCHC (32.0-37.0) g/dL Neutrophils # (1.80-7.70) X 10*3/uL Eosinophils # (0.04-0.35) X 10*3/uL BUN/Creatinine Ratio (12.00-20.00) Ratio Glucose (70-110) mg/dL POC Glucose (mg/dL) 172 H 145 H 162 H (70-110) mg/dL 11/04/24 11/04/24 11/04/24 Range/Units 04:28 04:28 06:33 WBC 10.10 H (4.50-10.00) X 10*3/uL RBC 4.14 L (4.40-5.60) X 10*6/uL Hgb 12.1 L (13.0-17.0) g/dL Hct 38.3 L (39.6-50.0) % MCHC 31.6 L (32.0-37.0) g/dL Neutrophils # 7.94 H (1.80-7.70) X 10*3/uL Eosinophils # 0.03 L (0.04-0.35) X 10*3/uL BUN/Creatinine Ratio 11.38 L (12.00-20.00) Ratio Glucose 156 H (70-110) mg/dL POC Glucose (mg/dL) 177 H (70-110) mg/dL Assessment and Plan Assessment: 1. STENOSIS T12-L3, MODERATE TO SEVERE 2. 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 NEUROGENIC CLAUDICATION 4. LE RADICULOPATHY 5. LE WEAKNESS 6. LOW BACK PAIN Postop day 1 status post L2-3 posterolateral interbody fusion, T12-L3 bilateral laminectomy Plan: 1. STENOSIS T12-L3, MODERATE TO SEVERE; SEVERE STENOSIS L2-3 WITH SPONDYLOSIS SEVERE; NEUROGENIC CLAUDICATION; LE RADICULOPATHY; LE WEAKNESS; LOW BACK PAIN - surgery performed yesterday, , 11/04/2024 - L2-3 posterolateral interbody fusion, T12-L3 bilateral laminectomy. Patient stable bedside's morning with dressing present over thoracolumbar spine. Patient did get up with therapy this morning walked around room in the hallway and up and down steps. Patient does have a walker for home. Pain well-controlled with oral medication. Discharge home today. 2. Appreciate medical management 3. Pain management -[place]; gabapentin; Flexeril 4. DVT prophylaxis -mechanical; resume aspirin and Brilinta once home 5. GI prophylaxis -senna 6. PT/OT -weightbearing as tolerated with walker 7. Encourage incentive spirometer use 8. Discharge planning -discharge home today. Time with Patient: Less than 30
--- NOTE | 2024-11-04 11:47 | P.DS ---
Providers Date of admission: 11/03/2024 Expected date of discharge: 11/04/24 Attending physician: Wilfredo Juares DO Consults: 11/03/24 10:48 Consult Physician Routine Consulting Provider: David Gomez Consult Reason/Comments: medical management s/p L1-L3 decompr fusion Do you want consulting provider notified?: Yes Primary care physician: Frannie Snell Hospital Course: Date of admission: 11/03/2024 Date of discharge: 11/04/2024 Admission diagnosis: 1. STENOSIS T12-L3, MODERATE TO SEVERE 2. 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 NEUROGENIC CLAUDICATION 4. LE RADICULOPATHY 5. LE WEAKNESS 6. LOW BACK PAIN Discharge diagnosis: Same Attending physician: Dr. Juares Surgical procedures: L2-3 posterolateral interbody fusion, T12-L3 bilateral laminectomy Brief history: Patient is a 68-year-old male with a history of T12-L3 stenosis; spondylosis; lower extremity radiculopathy; lower extremity weakness; low back pain. At this point patient has failed conservative treatment measures and has opted to proceed with a elective L2-3 posterior lateral interbody fusion, T12-L3 bilateral laminectomy. Hospital course: Details of patient's surgery can be found in operative report. Patient tolerated the procedure well and was subsequently transported to orthopedic floor. Patient's orthopeidc and medical care was provided daily. Patient had daily laboratory tests performed for evaluation of overall blood counts. Patient had daily physical therapy to include strengthening range of motion as well as education with walker ambulation. Patient was treated with Xarelto for their postoperative DVT prophylaxis during their inpatient stay. Patient was noted to have a relatively uneventful postoperative course. Patient reported satisfactory pain control with oral pain medications by postoperative day 1. Patient showed satisfactory progress with physical therapy. Patient moved steadily through the program and had no difficulty meeting the goals by postoperative day 1. Given patient's otherwise satisfactory course and having met physical therapy goals, plan is to discharge patient home on postoperative day 1. Discharge condition/disposition: Patient will be discharged home in stable condition. Discharge medications: Instructions are given on resumption of patient's normal daily medications per primary care recommendation, in addition patient will be prescribed Sparks; Flexeril; gabapentin; senna; Duricef. Spine Discharge and Recovery Instructions Date of Surgery: 11/03/2024 Diagnosis: 1. STENOSIS T12-L3, MODERATE TO SEVERE 2. 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 NEUROGENIC CLAUDICATION 4. LE RADICULOPATHY 5. LE WEAKNESS 6. LOW BACK PAIN Procedure: L2-3 posterolateral interbody fusion, T12-L3 bilateral laminectomy Medications: See medication list All medication refills should be obtained through your primary care doctor or your clinic spine surgeon. Please discuss prescription refills at your follow up appointment. Do not call the hospital for medication refills. Dressing: Leave your dressing in place for a total of 5 days post operatively. Then you may remove your dressing and leave open to air. Keep the area clean and if not able to keep area clean, then cover with sterile gauze and tape. Showering: You may shower 3 days after your procedure allowing soap and water to run over incision. Do not scrub. Do not soak. Blot dry. Follow up: Please confirm a follow up appointment with your surgeon 3 weeks post operatively. Please make an appointment to follow up with your PCP in 1-2 weeks after surgery for evaluation '3 phase, 3-week plan' POST OP WEEKS 1-3 1. Lifting/carrying/pushing/pulling limited to less than 5 pounds. 2. Do not sit for longer than 15 minutes at one time. Get up and walk around. Prolonged sitting is NOT advised. If you lay down, see if you can tolerate laying down on you front (belly side) 3. Walk for periods of 15 minutes = 1 mile but no longer; do it multiple times times each day. 4. Ice your low back after activity. POST OP WEEKS 3-6 1. Lifting limited to less than 20 pounds. 2. Do not sit for longer than 30 minutes at a time. Frequently change positions. Use a sit-to stand workstation or take frequent breaks from sitting if you have returned to work. 3. Walk for 30 minutes each day. If possible, do these three or more times a day POST OP WEEKS 6+ At your 6-week appointment we will give you a physical therapy referral to focus on a core stabilization and strengthening program. You should also work on leg & buttock strengthening, hamstring & quadriceps stretching, and continue a low impact aerobic activity program such as swimming, walking, or riding a stationary bicycle. During the initial 6 weeks after your surgery, you are at the highest risk of re-injuring your spine. You should generally avoid BLT's (bending, lifting and twisting combination motions) and follow the above guidelines to reduce the chance of reinjury. You can anticipate post op appointments in our office at approximately 3 weeks and 6 weeks after your surgery. INCISION CARE: If your incision is not draining you do NOT need to cover it with a dressing. Keep your incision clean, dry and intact. In most cases, we apply skin glue, yonas or sutures to the incision at the time of surgery. This will be like a crust or have the appearance of a scab and will fall off in time on its own. The stitches or yonas need to be removed at 3 weeks post op appointment. You may begin to shower 3 days after surgery (this allows the glue to mack well). However, please avoid scrubbing the incision site or peeling off any of the skin glue. This will ensure optimal healing of your incision. Also, during this time avoid soaking the incision area in water - this includes swimming pools, hot tubs or baths. No ointments, lotions or oils on the incision until your surgeon allows. Leave yonas, sutures or glue in place. Neurological dysfunction that comes on suddenly can also be a sign of a stroke. Below some common symptoms of a stroke are listed: B - balance difficulty such as sudden onset walking or leaning to one side - NEW E - eye problem such as sudden double vision or trouble seeing on one side - NEW F - Facial weakness or numbness on one side - NEW A - Arm or leg weakness or numbness on one side - NEW S - Slurred speech or difficulty with word finding - NEW T - Time is BRAIN! Call 911 as soon as you recognize these symptoms Diet: Consume a regular diet rich in vegetables and lean protein such as chicken or fish. You should consume in a ratio of approximately 20% fats|40% carbohydrates|40%protein. Vegetables, sweet potatoes, brown rice or quinoa are examples of good carbohydrates. Chips, white bread, cookies and sweets/sugar are examples of bad carbohydrates. Limit your bad carbs, go wild with good carbs. "Life's Simple 7" Guidelines as per [place] [employer] These will help you reclaim your life after surgery and commercial baker helper in your recovery, keeping in mind your restrictions. (1) Get Active. Physical activity can help people lose weight, control high blood pressure and cholesterol, feel emotionally better, and sleep better. (2) Control Cholesterol. Avoid a diet high in saturated fat, trans fat, & cholesterol. Limit whole milk & cream, ice cream, butter, egg yolks, processed meats (like sausage and hot dogs), and fatty meats. Choose healthy foods that are low in saturated fat, trans fat and cholesterol which include: Fruits and vegetables, fiber rich grain products (like whole grain pasta and brown rice), lean meat such as chicken, fish, nuts, seeds, and legumes. (3) Eat Better. Eat small portions. Shop at the grocery with a list and do not stray from it. Tips for a healthy diet include: Limit sodium intake to less than 1500mg daily, avoid prepackaged, processed, and fast foods, choose a diet rich in fruits, vegetables, and whole grain, high fiber foods, and limit s aturated & cholesterol in your diet. (4) Manage Blood Pressure. If you have high blood pressure, you should have a cuff at home so that you can check your blood pressure regularly. Be sure you have a good cuff. An arm one is generally better than a wrist one. Bring the cuff to a doctor's appointment to validate that the measurements that your cuff are taking are accurate. Take your blood pressure twice daily when you are sitting down and relaxing. Record the numbers in a log and bring this log with you to your doctors' appointments. (5) Lose Weight if your BMI is above 25. A healthy BMI is between 19-25. To calculate Your BMI, you may use a Standard BMI Calculator on the NIH BMI website: <www.nhlbi.nih.gov/guidelines/obesity/BMI/bmicalc.htm>. Weigh oneself daily. If you are overweight, set a goal to lose weight. A pound a week loss if needed is a good target. (6) Reduce Blood Sugar. Limit foods and liquids with "added sugars." (Added sugars include sucrose, fructose, glucose, maltose, dextrose, high fructose corn syrup, corn syrup, concentrated fruit juice and honey). (7) Stop Smoking. If you smoke, quitting smoking is one of the best things that you can do for your health. Smoking increases your risk of heart attack, stroke, and peripheral vascular disease, which is a build-up of plaque in your arteries. Please discard all the cigarettes and lighters in your house. Have a plan for what you will do when you have the urge to smoke. Direct and second- hand smoke shortens your life as well as the lives of your family, friends and others around you. For your health and the health of those around you, please consider quitting! Proper Bending Body Mechanics: Maintain a wide stance with one foot slightly in front of the other. Keep your back straight. Bend utilizing the strength in your hips and knees. Do not bend at the waist. Maintain the lifted object at your waist-level close to your body. Avoid lifting weight that causes immediately pain or pain anywhere in the body afterwards. Smoking/Nicotine If there was ever one thing that you could do to increase your overall health, decrease your risk of cardiovascular problems by about 39% the second you make the choice, it is to STOP SMOKING. Your body's most instant gratification is the second you stop smoking. We have all heard the studies, read the articles but it is true, smoking is extremely bad for your overall health, and moreover it is detrimental to your bone health. Nicotine, IN ANY FORM, kills bone cells, prevents your body from healing fractures, and significantly prolongs healing after surgery. In spine surgery specifically, it increases your risk of not healing your bones to create a fusion and increases your risk of having a revision surgery due to this up to 60%. I know it is hard. I know it feels impossible. But there are ways. Take control of your life. We are here to help you through it. And when you are ready, ask us and we can direct you to help if you desire. Use the START Plan to Quit Smoking (please visit the Helpguide.org website listed below for more information): S = Set a quit date. Choose a date within the next 2 weeks, so you have enough time to prepare without losing your motivation to quit. If you mainly smoke at work, quit on the weekend, so you have a few days to adjust to the change. T = Tell family, friends, and co-workers that you plan to quit. Let your friends and family in on your plan to quit smoking and tell them you n eed their support and encouragement to stop. Look for a quit garland who wants to stop smoking as well. You can help each other get through the rough times. A = Anticipate and plan for the challenges you'll face while quitting. Most people who begin smoking again do so within the first 3 months. You can help yourself make it through by preparing ahead for common challenges, such as nicotine withdrawal and cigarette cravings. R = Remove cigarettes and other tobacco products from your home, car, and work. Throw away all your cigarettes (no emergency pack!), lighters, ashtrays, and matches. Wash your clothes and freshen up anything that smells like smoke. Shampoo your car, clean your drapes and carpet, and steam your furniture. T = Talk to your doctor about getting help to quit. Your doctor can prescribe medication to help with withdrawal and suggest other alternatives. If you can't see a doctor, you can get many products over the counter at your local pharmacy or grocery store, including the nicotine patch, nicotine lozenges, and nicotine gum. Resources for Quitting Smoking: <https://www.[place].gov/documents/[facility]/Quit_Tobacco_Resources_for_patients_313 480_7.pdf> Supplementation: Take recommended dosages of Vitamin D and Calcium to help fortify your bones and help them to heal. See your health maintenance packet for dosages and recommended levels. DVT/VTE prophylaxis: You will be given compression stockings from the hospital. Wear these daily for the first two weeks after surgery. You may take them off at night. You may be prescribed a medication to help thin your blood. Take this as directed. If you are not prescribed this medication, early and frequent ambulation has been shown to be the best prophylaxis to deep vein thrombosis and sequelae related to this event. Patient Condition at Discharge: Good Plan - Discharge Summary Discharge Rx Participant: Yes New Discharge Prescriptions: No Action lisinopriL [Zestril] 20 mg PO QAM PARoxetine [Paxil] 10 mg PO QAM Carbidopa-Levodopa 25-100 mg [Sinemet 25-100 mg] 1 each PO HS Acetaminophen Tab [Tylenol] 1,000 mg PO Q6HR PRN PRN Reason: Pain Aspirin [Adult Low Dose Aspirin EC] 81 mg PO DAILY Pantoprazole [Protonix] 40 mg PO QAM Cetirizine HCl 10 mg PO QAM Ticagrelor [Brilinta] 90 mg PO BID #180 tab Atorvastatin Calcium [Lipitor] 80 mg PO DAILY #90 tab metFORMIN HCL 1,000 mg PO BID Discharge Medication List Acetaminophen Tab [Tylenol] 1,000 mg PO Q6HR PRN 12/29/23 [History] Carbidopa-Levodopa 25-100 mg [Sinemet 25-100 mg] 1 each PO HS 12/29/23 [History] Cetirizine HCl 10 mg PO QAM 12/29/23 [History] PARoxetine [Paxil] 10 mg PO QAM 12/29/23 [History] Pantoprazole [Protonix] 40 mg PO QAM 12/29/23 [History] lisinopriL [Zestril] 20 mg PO QAM 12/29/23 [History] Aspirin [Adult Low Dose Aspirin EC] 81 mg PO DAILY 01/01/24 [History] Atorvastatin Calcium [Lipitor] 80 mg PO DAILY #90 tab 01/02/24 [Rx] Ticagrelor [Brilinta] 90 mg PO BID #180 tab 01/02/24 [Rx] metFORMIN HCL 1,000 mg PO BID 10/31/24 [History] Follow up Appointment(s)/Referral(s): Wilfredo Juares DO [Doctor of Osteopathic Medicine] - 2 Weeks Activity/Diet/Wound Care/Special Instructions: Spine Discharge and Recovery Instructions Keep dressing clean, dry, intact. Is okay to remove dressing on 11/08/2024. Once dressing is removed, it is okay to shower directly over incision Date of Surgery: 11/03/2024 Diagnosis: 1. STENOSIS T12-L3, MODERATE TO SEVERE 2. 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 NEUROGENIC CLAUDICATION 4. LE RADICULOPATHY 5. LE WEAKNESS 6. LOW BACK PAIN Procedure: L2-3 posterolateral interbody fusion, T12-L3 bilateral laminectomy Medications: See medication list All medication refills should be obtained through your primary care doctor or your clinic spine surgeon. Please discuss prescription refills at your follow up appointment. Do not call the hospital for medication refills. Dressing: Leave your dressing in place for a total of 5 days post operatively. Then you may remove your dressing and leave open to air. Keep the area clean and if not able to keep area clean, then cover with sterile gauze and tape. Showering: You may shower 3 days after your procedure allowing soap and water to run over incision. Do not scrub. Do not soak. Blot dry. Follow up: Please confirm a follow up appointment with your surgeon 3 weeks post operatively. Please make an appointment to follow up with your PCP in 1-2 weeks after surgery for evaluation '3 phase, 3-week plan' POST OP WEEKS 1-3 1. Lifting/carrying/pushing/pulling limited to less than 5 pounds. 2. Do not sit for longer than 15 minutes at one time. Get up and walk around. Prolonged sitting is NOT advised. If you lay down, see if you can tolerate laying down on you front (belly side) 3. Walk for periods of 15 minutes = 1 mile but no longer; do it multiple times times each day. 4. Ice your low back after activity. POST OP WEEKS 3-6 1. Lifting limited to less than 20 pounds. 2. Do not sit for longer than 30 minutes at a time. Frequently change positions. Use a sit-to stand workstation or take frequent breaks from sitting if you have returned to work. 3. Walk for 30 minutes each day. If possible, do these three or more times a day POST OP WEEKS 6+ At your 6-week appointment we will give you a physical therapy referral to focus on a core stabilization and strengthening program. You should also work on leg & buttock strengthening, hamstring & quadriceps stretching, and continue a low impact aerobic activity program such as swimming, walking, or riding a stationary bicycle. During the initial 6 weeks after your surgery, you are at the highest risk of re-injuring your spine. You should generally avoid BLT's (bending, lifting and twisting combination motions) and follow the above guidelines to reduce the chance of reinjury. You can anticipate post op appointments in our office at approximately 3 weeks and 6 weeks after your surgery. INCISION CARE: If your incision is not draining you do NOT need to cover it with a dressing. Keep your incision clean, dry and intact. In most cases, we apply skin glue, yonas or sutures to the incision at the time of surgery. This will be like a crust or have the appearance of a scab and will fall off in time on its own. The stitches or yonas need to be removed at 3 weeks post op appointment. You may begin to shower 3 days after surgery (this allows the glue to mack well). However, please avoid scrubbing the incision site or peeling off any of the skin glue. This will ensure optimal healing of your incision. Also, during this time avoid soaking the incision area in water - this includes swimming pools, hot tubs or baths. No ointments, lotions or oils on the incision until your surgeon allows. Leave yonas, sutures or glue in place. Neurological dysfunction that comes on suddenly can also be a sign of a stroke. Below some common symptoms of a stroke are listed: B - balance difficulty such as sudden onset walking or leaning to one side - NEW E - eye problem such as sudden double vision or trouble seeing on one side - NEW F - Facial weakness or numbness on one side - NEW A - Arm or leg weakness or numbness on one side - NEW S - Slurred speech or difficulty with word finding - NEW T - Time is BRAIN! Call 911 as soon as you recognize these symptoms Diet: Consume a regular diet rich in vegetables and lean protein such as chicken or fish. You should consume in a ratio of approximately 20% fats|40% carbohydrates|40%protein. Vegetables, sweet potatoes, brown rice or quinoa are examples of good carbohydrates. Chips, white bread, cookies and sweets/sugar are examples of bad carbohydrates. Limit your bad carbs, go wild with good carbs. "Life's Simple 7" Guidelines as per [place] [employer] These will help you reclaim your life after surgery and commercial baker helper in your recovery, keeping in mind your restrictions. (1) Get Active. Physical activity can help people lose weight, control high blood pressure and cholesterol, feel emotionally better, and sleep better. (2) Control Cholesterol. Avoid a diet high in saturated fat, trans fat, & cholesterol. Limit whole milk & cream, ice cream, butter, egg yolks, processed meats (like sausage and hot dogs), and fatty meats. Choose healthy foods that are low in saturated fat, trans fat and cholesterol which include: Fruits and vegetables, fiber rich grain products (like whole grain pasta and brown rice), lean meat such as chicken, fish, nuts, seeds, and legumes. (3) Eat Better. Eat small portions. Shop at the grocery with a list and do not stray from it. Tips for a healthy diet include: Limit sodium intake to less than 1500mg daily, avoid prepackaged, processed, and fast foods, choose a diet rich in fruits, vegetables, and whole grain, high fiber foods, and limit saturated & cholesterol in your diet. (4) Manage Blood Pressure. If you have high blood pressure, you should have a cuff at home so that you can check your blood pressure regularly. Be sure you have a good cuff. An arm one is generally better than a wrist one. Bring the cuff to a doctor's appointment to validate that the measurements that your cuff are taking are accurate. Take your blood pressure twice daily when you are sitting down and relaxing. Record the numbers in a log and bring this log with you to your doctors' appointments. (5) Lose Weight if your BMI is above 25. A healthy BMI is between 19-25. To calculate Your BMI, you may use a Standard BMI Calculator on the NIH BMI website: <www.nhlbi.nih.gov/guidelines/obesity/BMI/bmicalc.htm>. Weigh oneself daily. If you are overweight, set a goal to lose weight. A pound a week loss if needed is a good target. (6) Reduce Blood Sugar. Limit foods and liquids with "added sugars." (Added sugars include sucrose, fructose, glucose, maltose, dextrose, high fructose corn syrup, corn syrup, concentrated fruit juice and honey). (7) Stop Smoking. If you smoke, quitting smoking is one of the best things that you can do for your health. Smoking increases your risk of heart attack, stroke, and peripheral vascular disease, which is a build-up of plaque in your arteries. Please discard all the cigarettes and lighters in your house. Have a plan for what you will do when you have the urge to smoke. Direct and second- hand smoke shortens your life as well as the lives of your family, friends and others around you. For your health and the health of those around you, please consider quitting! Proper Bending Body Mechanics: Maintain a wide stance with one foot slightly in front of the other. Keep your back straight. Bend utilizing the strength in your hips and knees. Do not bend at the waist. Maintain the lifted object at your waist-level close to your body. Avoid lifting weight that causes immediately pain or pain anywhere in the body afterwards. Smoking/Nicotine If there was ever one thing that you could do to increase your overall health, decrease your risk of cardiovascular problems by about 39% the second you make the choice, it is to STOP SMOKING. Your body's most instant gratification is the second you stop smoking. We have all heard the studies, read the articles but it is true, smoking is extremely bad for your overall health, and moreover it is detrimental to your bone health. Nicotine, IN ANY FORM, kills bone cells, prevents your body from healing fractures, and significantly prolongs healing after surgery. In spine surgery specifically, it increases your risk of not healing your bones to create a fusion and increases your risk of having a revision surgery due to this up to 60%. I know it is hard. I know it feels impossible. But there are ways. Take control of your life. We are here to help you through it. And when you are ready, ask us and we can direct you to help if you desire. Use the START Plan to Quit Smoking (please visit the [employer]org website listed below for more information): S = Set a quit date. Choose a date within the next 2 weeks, so you have enough time to prepare with out losing your motivation to quit. If you mainly smoke at work, quit on the weekend, so you have a few days to adjust to the change. T = Tell family, friends, and co-workers that you plan to quit. Let your friends and family in on your plan to quit smoking and tell them you need their support and encouragement to stop. Look for a quit garland who wants to stop smoking as well. You can help each other get through the rough times. A = Anticipate and plan for the challenges you'll face while quitting. Most people who begin smoking again do so within the first 3 months. You can help yourself make it through by preparing ahead for common challenges, such as nicotine withdrawal and cigarette cravings. R = Remove cigarettes and other tobacco products from your home, car, and work. Throw away all your cigarettes (no emergency pack!), lighters, ashtrays, and matches. Wash your clothes and freshen up anything that smells like smoke. Shampoo your car, clean your drapes and carpet, and steam your furniture. T = Talk to your doctor about getting help to quit. Your doctor can prescribe medication to help with withdrawal and suggest other alternatives. If you can't see a doctor, you can get many products over the counter at your local pharmacy or grocery store, including the nicotine patch, nicotine lozenges, and nicotine gum. Resources for Quitting Smoking: < https://www.[place].gov/documents/[facility]/Quit_Tobacco_Resources_for_patients_3134 80_7.pdf> Supplementation: Take recommended dosages of Vitamin D and Calcium to help fortify your bones and help them to heal. See your health maintenance packet for dosages and recommended levels. DVT/VTE prophylaxis: You will be given compression stockings from the hospital. Wear these daily for the first two weeks after surgery. You may take them off at night. You may be prescribed a medication to help thin your blood. Take this as directed. If you are not prescribed this medication, early and frequent ambulation has been shown to be the best prophylaxis to deep vein thrombosis and sequelae related to this event.
[2024-11-04 11:52] LABS: Glucose,Whole Blood 131 mg/dL (70-110)
[2024-11-04] MEDS: ASPIRIN 81 MG PO STA (16:58)
[2024-11-04 17:11] LABS: Glucose,Whole Blood 178 mg/dL (70-110)
--- NOTE | 2024-11-04 17:47 | P.CONS ---
History of Present Illness - Reason for Consult Consult date: 11/04/24 Medical management Requesting physician: Wilfredo Juares - Chief Complaint Low back pain - History of Present Illness Very pleasant 68-year-old patient, follows with Dr. Frannie Snell. Chronic stable medical conditions include diabetes, hyperlipidemia, hypertension, BPH, restless leg syndrome, peptic ulcer disease. CAD with stent. Patient is at low back pain going on for some time. Pain was radiating down both legs. Causing neurogenic claudication. Weakness. Had failed outpatient conservative management. Patient underwent surgical intervention to include laminectomy instrumentation and fusion by Dr. uJares yesterday. I saw the patient today. Having some pain. Did tolerate his diet. No nausea vomiting. Did walk in the morning. When I came to the room patient had just moved from the bed to the chair. [employer] extremely dizzy and did break out in a sweat. No chest pain. I ordered an EKG that showed nonspecific ST-T wave changes. Serial troponins were ordered. Telemetry was placed. Cardiology was consulted. Patient blood pressure with episode was about 80 systolic. Review of systems: GEN.: A bit tired EYES: None HEENT: None NECK: None RESPIRATORY: None CARDIOVASCULAR: No chest pain GASTROINTESTINAL: None GENITOURINARY: None MUSCULOSKELETAL: [As above LYMPHATICS: None HEMATOLOGICAL: None PSYCHIATRY: None NEUROLOGICAL: None Social history: Does not smoke. Alcohol occasionally. . Retired materials management. Physical examination: VITAL SIGNS: 98.8, 60, 16, 82/43, 94% room air GENERAL: BMI 33.5, sitting up in chair, a bit tired, perspiration forehead. EYES: Pupils equal. Conjunctiva katerina l. HEENT: External appearance of nose and ears normal, oral cavity grossly normal. NECK: JVD not raised; masses not palpable. HEART: First and second heart sounds are normal; no edema. LUNGS: Respiratory rate normal; clear to auscultation. ABDOMEN: Soft, nontender, liver spleen not palpable, no masses palpable. PSYCH: Alert and oriented x3; mood and affect katerina l. MUSCULOSKELETAL:No Clubbing/cyanosis;muscles-grossly intact. Dressing over the incision site NEUROLOGICAL: Cranial nerves grossly intact; no facial asymmetry, power and sensation grossly intact. LYMPHATICS: No lymph nodes palpable in the axilla and neck INVESTIGATIONS, reviewed in the clinical context: November 04: White count 10.1 hemoglobin 12.1 platelets 249 sodium 138 potassium 4.1 creatinine 1.36 EKG tracing personally reviewed by me-normal sinus rhythm. Nonspecific T wave changes 1 aVL V6 Troponin I: 0.108, 0.109 Previous labs: November 01: White count 6.4 hemoglobin 13.8 potassium 4.7 creatinine 1.2 Assessment plan: -Acute episode of hypotension with dizziness perspiration. No chest pain. EKG showed some T wave changes. Slight bump in troponin. Serial troponin. Telemetry. Consult cardiology. -Diabetes mellitus type 2 on oral hypoglycemic Metformin. Diabetic diet -Essential hypertension Zestril 20 mg daily. -Hyperlipidemia Lipitor 80 mg a day -Restless leg syndrome Sinemet 2501 tablet nightly -Anxiety Paxil 10 mg a day -Chronic, peptic ulcer disease Protonix -Full code Serial troponins. Cardiology consultation. Telemetry. Other medications to continue. Discussed with patient. Thank you Dr. Juares Past Medical History Past Medical History: Diabetes Mellitus, Hyperlipidemia, Hypertension, Osteoarthritis (OA), Pneumonia, Prostate Disorder, Syncope Additional Past Medical History / Comment(s): Recent test last week, Dec 21- showed leaking valve, arthritis to back, enlarged prostate, "I passed out before they dicovered I had a blockage to my caratid artery 2 years ago, NIDDM , peptic ulcer,restless legs. History of Any Multi-Drug Resistant Organisms: None Reported Past Surgical History: Back Surgery, Heart Catheterization With Stent Additional Past Surgical History / Comment(s): Bx of prostate, Lt carotid endarterectomy. Past Anesthesia/Blood Transfusion Reactions: No Reported Reaction Additional Past Anesthesia/Blood Transfusion Reaction / Comm: no blood tx hx Date of Last Stent Placement:: 12/2023 Smoking Status: Never smoker - Past Family History Father History Unknown: Yes Medications and Allergies Home Medications Medication Instructions Recorded Confirmed Type Acetaminophen Tab [Tylenol] 1,000 mg PO Q6HR PRN 12/29/23 11/03/24 History Carbidopa-Levodopa 25-100 mg 1 each PO HS 12/29/23 11/03/24 History [Sinemet 25-100 mg] Cetirizine HCl 10 mg PO QAM 12/29/23 11/03/24 History PARoxetine [Paxil] 10 mg PO QAM 12/29/23 11/03/24 History Pantoprazole [Protonix] 40 mg PO QAM 12/29/23 11/03/24 History lisinopriL [Zestril] 20 mg PO QAM 12/29/23 11/03/24 History Aspirin [Adult Low Dose Aspirin EC] 81 mg PO DAILY 01/01/24 11/03/24 History Atorvastatin Calcium [Lipitor] 80 mg PO DAILY #90 tab 01/02/24 11/03/24 Rx Ticagrelor [Brilinta] 90 mg PO BID #180 tab 01/02/24 11/03/24 Rx metFORMIN HCL 1,000 mg PO BID 10/31/24 11/03/24 History Cyclobenzaprine [Flexeril] 5 mg PO TID #21 tablet 11/04/24 Rx Gabapentin [Neurontin] 300 mg PO TID #30 cap 11/04/24 Rx HYDROcodone/APAP 7.5-325MG [[place] 1 tab PO Q6HR PRN #28 tab 11/04/24 Rx 7.5-325] Sennosides/Docusate Sodium [Senna 1 each PO DAILY #20 capsule 11/04/24 Rx Plus 8.6-50 mg Softgel] cefaDROXiL [Duricef] 500 mg PO Q12HR 5 Days #10 cap 11/04/24 Rx Allergies Allergy/AdvReac Type Severity Reaction Status Date / Time No Known Allergies Allergy Verified 11/03/24 06:16 Physical Exam Vitals: Vital Signs Temp Pulse Pulse Resp BP BP Pulse Ox 11/04/24 07:29 98.8 F 87 18 172/75 94 L 11/04/24 05:50 91 165/69 11/04/24 00:30 97.8 F 103 H 18 170/76 93 L 11/03/24 19:37 98.3 F 109 H 16 160/81 94 L 11/03/24 16:34 98.5 F 91 18 149/79 95 11/03/24 13:09 98.7 F 108 H 17 152/76 11/03/24 12:23 92 16 169/76 95 11/03/24 11:53 94 16 162/72 99 11/03/24 11:38 95 16 160/70 99 11/03/24 11:23 95 16 169/74 95 11/03/24 11:08 101 H 16 175/67 97 11/03/24 10:53 95 16 151/62 97 11/03/24 10:38 97 F L 87 16 159/72 96 Intake and Output 11/03/24 11/04/24 11/04/24 22:59 06:59 14:59 Output Total 200 1000 Balance -200 -1000 Output: Urine 200 1000 Results CBC & Chem 7: 11/04/24 04:28 11/04/24 04:28 Labs: Abnormal Lab Results - Last 24 Hours (Table) 11/03/24 11/03/24 11/03/24 Range/Units 11:17 16:25 20:57 WBC (4.50-10.00) X 10*3/uL RBC (4.40-5.60) X 10*6/uL Hgb (13.0-17.0) g/dL Hct (39.6-50.0) % MCHC (32.0-37.0) g/dL Neutrophils # (1.80-7.70) X 10*3/uL Eosinophils # (0.04-0.35) X 10*3/uL BUN/Creatinine Ratio (12.00-20.00) Ratio Glucose (70-110) mg/dL POC Glucose (mg/dL) 172 H 145 H 162 H (70-110) mg/dL 11/04/24 11/04/24 11/04/24 Range/Units 04:28 04:28 06:33 WBC 10.10 H (4.50-10.00) X 10*3/uL RBC 4.14 L (4.40-5.60) X 10*6/uL Hgb 12.1 L (13.0-17.0) g/dL Hct 38.3 L (39.6-50.0) % MCHC 31.6 L (32.0-37.0) g/dL Neutrophils # 7.94 H (1.80-7.70) X 10*3/uL Eosinophils # 0.03 L (0.04-0.35) X 10*3/uL BUN/Creatinine Ratio 11.38 L (12.00-20.00) Ratio Glucose 156 H (70-110) mg/dL POC Glucose (mg/dL) 177 H (70-110) mg/dL
[2024-11-04 19:57] LABS: Glucose,Whole Blood 200 mg/dL (70-110)
[2024-11-04 21:15] LABS: Glucose,Whole Blood 145 mg/dL (70-110)
[2024-11-05 06:13] LABS: Glucose,Whole Blood 150 mg/dL (70-110)
--- NOTE | 2024-11-05 09:52 | P.PN ---
Subjective Progress Note Date: 11/05/24 Principal diagnosis: 1. STENOSIS T12-L3, MODERATE TO SEVERE 2. 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 NEUROGENIC CLAUDICATION 4. LE RADICULOPATHY 5. LE WEAKNESS 6. LOW BACK PAIN Patient was seen at bedside this morning lying in the semirecumbent position with dressing over thoracolumbar spine om 3S. patient did have an acute episode yesterday morning of hypotension with dizziness. Medicine did consult cardiology. Patient was then transferred to [address] [place] [address] for for further workup. Cardiology to see patient this morning. Patient says she did get up with therapy yesterday morning and walked around the room and into the hallway up and down steps. Patient says he has urinated since surgery yesterday without issue. Patient says pain is well-controlled with oral medication. Patient denies any other orthopedic complaints at this time. Patient is hoping home later today pending clearance from medicine and cardiology. Objective - Vital Signs Vital signs: Vital Signs Temp 98.7 F 11/05/24 04:00 Pulse 94 11/05/24 04:00 Resp 17 11/05/24 04:00 BP 178/83 11/05/24 04:00 Pulse Ox 94 L 11/05/24 04:00 FiO2 Intake & Output 11/04/24 11/05/24 11/05/24 18:59 06:59 18:59 Intake Total 360 Output Total 500 320 Balance -500 40 Weight 114 kg Intake: Oral 360 Output: Urine 500 320 Other: Voiding Method Urinal # Voids 2 1 - Exam Incision is clean, dry, intact over thoracolumbar spine. [place] are well aligned and intact. Negative for any active drainage. Dressing was changed at bedside. Sensation is equal, symmetric, bilaterally intact. There is fair amount of tenderness to palpation over incision on spine. Nontender to palpation on rest of exam. Patient does have full range of motion throughout bilateral upper extremities on exam. There is some limited range of motion in the bilateral hips and knees in flexion extension secondary to referred stiffness to the low back. Negative [place] bilaterally. Radial pulse intact, 2+ bilaterally. Cap refill under 3 seconds in digits of upper extremities. - Labs CBC & Chem 7: 11/04/24 04:28 11/04/24 04:28 Labs: Abnormal Lab Results - Last 24 Hours (Table) 11/04/24 11/04/24 11/04/24 Range/Units 11:51 13:00 16:35 POC Glucose (mg/dL) 131 H (70-110) mg/dL Troponin I 0.108 H* 0.109 H* (0.000-0.034) ng/mL 11/04/24 11/04/24 11/04/24 Range/Units 17:10 19:54 20:51 POC Glucose (mg/dL) 178 H 200 H (70-110) mg/dL Troponin I 0.105 H* (0.000-0.034) ng/mL 11/04/24 11/05/24 Range/Units 21:12 06:11 POC Glucose (mg/dL) 145 H 150 H (70-110) mg/dL Troponin I (0.000-0.034) ng/mL Assessment and Plan Assessment: 1. STENOSIS T12-L3, MODERATE TO SEVERE 2. 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 NEUROGENIC CLAUDICATION 4. LE RADICULOPATHY 5. LE WEAKNESS 6. LOW BACK PAIN Postop day 2 status post L2-3 posterolateral interbody fusion, T12-L3 bilateral laminectomy Plan: 1. STENOSIS T12-L3, MODERATE TO SEVERE; SEVERE STENOSIS L2-3 WITH SPONDYLOSIS SEVERE; NEUROGENIC CLAUDICATION; LE RADICULOPATHY; LE WEAKNESS; LOW BACK PAIN - surgery performed , 11/04/2024 - L2-3 posterolateral interbody fusion, T12-L3 bilateral laminectomy. Patient at bedside this morning morning with dressing present over thoracolumbar spine. Patient did get up with therapy yesterday morning and walked around room in the hallway and up and down steps. Patient does have a walker for home. Pain well-controlled with oral medication. Discharge home today pending medicine and cardiac clearance. 2. Appreciate medical and cardiology management 3. Pain management -[place]; gabapentin; Flexeril 4. DVT prophylaxis -mechanical; resume aspirin and Brilinta once home 5. GI prophylaxis -senna 6. PT/OT -weightbearing as tolerated with walker 7. Encourage incentive spirometer use 8. Discharge planning -discharge home today pending medicine and cardiology clearance Time with Patient: Less than 30
[2024-11-05 11:20] VITALS: RESP 16
[2024-11-05 11:51] LABS: Glucose,Whole Blood 133 mg/dL (70-110)
--- NOTE | 2024-11-05 11:59 | P.CRDCN ---
History of Present Illness Consult date: 11/05/24 Reason for Consult (text): Elevated troponins History of present illness: This is a 68-year-old male patient of Dr. Shultz with past medical history of CAD status post stenting of the LAD and known intermediate disease involving RCA, hypertension, dyslipidemia, diabetes mellitus type 2, carotid atherosclerosis status post left carotid endarterectomy, valvular heart disease with mitral regurgitation, overweight. We have been asked to evaluate the patient for elevated troponins. Patient presented to the hospital underwent surgery on his lumbar spine T12-L3 on 11/03. Patient states that yesterday he developed a bad spasms in his back and also into his legs and it became so bad that his blood pressure dropped and he felt like he was going to pass out. Troponins were obtained and were elevated and thus this consult was generated. Patient denies having any chest pain at this time. We have not started patient on heparin due to recent surgery. We will start aspirin if okay with orthopedic surgery. Blood pressure 201/87, heart rate 92, pulse ox 93% on room air. -EKG: Sinus rhythm with no acute ST changes. -Laboratory studies: WBC 10.1, hemoglobin 12.1. Troponin 0.108, 0.109 and 0.105. -Home cardiac medications: Aspirin 81 mg daily, atorvastatin 80 mg at bedtime, lisinopril 20 mg daily, Brilinta 90 mg twice daily. -Cardiac catheterization performed 01/01/2024 found disease involving the proximal and mid LAD and intermediate disease involving the RCA status post stent of the mid LAD and stent of the proximal LAD. -Echocardiogram performed 12/19/2023 in the office revealed EF of 55%, mild concentric left ventricular hypertrophy, mild to moderate mitral regurgitation, trace to mild tricuspid regurgitation, PASP 21 mmHg. Mild to moderate regurgitation. Review Of Systems: At the time of my exam: CONSTITUTIONAL: Denies fever or chills. HEENT: Denies blurred vision, vision changes, or eye pain. Denies hemoptysis CARDIOVASCULAR: Denies chest pain. Denies orthopnea. Denies PND. Denies palpitations RESPIRATORY: Denies shortness of breath. GASTROINTESTINAL: Denies abdominal pain. Denies nausea or vomiting. HEMATOLOGIC: Denies bleeding disorders. GENITOURINARY: Denies any blood in urine. SKIN: Denies puritis. Denies rash. Physical examination: Continue to monitor patient Gen: This is a 68-year-old male in no acute distress VS: reviewed HEENT: Head is atraumatic, normocephalic. Pupils equal, round. Sclerae is ani cteric. NECK: Supple. No JVD. LUNGS: Clear to auscultation. No wheezes or rhonchi. No intercostal retractions. HEART: Regular rate and rhythm. No murmur. ABDOMEN: Soft No tenderness. EXTREMITIES: No pedal edema. No calf tenderness. NEUROLOGICAL: Patient is awake, alert and oriented x3. Assessment: Elevated troponin most likely due to episode of hypotension Stenosis T12-L3 status post surgery on 11/03 History of CAD with previous stenting of the LAD 01/01/2024 Hypertension Dyslipidemia Diabetes mellitus type 2 Carotid atherosclerosis status post left carotid endarterectomy Mitral regurgitation Overweight Plan: Resume patient's home cardiac medications Start patient on aspirin 81 mg daily for now if cleared by orthopedics. Will hold on Brilinta for now due to recent surgery Obtain 2-D echocardiogram and Doppler study to assess cardiac structure and function Further recommendations to follow based upon clinical course Thank you kindly for this consultation. Nurse practitioner note has been reviewed, I agree with documented findings and plan of care. Patient was seen and examined. Past Medical History Past Medical History: Diabetes Mellitus, Hyperlipidemia, Hypertension, Osteoarthritis (OA), Pneumonia, Prostate Disorder, Syncope Additional Past Medical History / Comment(s): Recent test last week, Dec 21 owed leaking valve, arthritis to back, enlarged prostate, "I passed out before they dicovered I had a blockage to my caratid artery 2 years ago, NIDDM , peptic ulcer,restless legs. History of Any Multi-Drug Resistant Organisms: None Reported Past Surgical History: Back Surgery, Heart Catheterization With Stent Additional Past Surgical History / Comment(s): Bx of prostate, Lt carotid endarterectomy. Past Anesthesia/Blood Transfusion Reactions: No Reported Reaction Additional Past Anesthesia/Blood Transfusion Reaction / Comment(s): no blood tx hx Date of Last Stent Placement:: 12/2023 Smoking Status: Never smoker - Past Family History Father History Unknown: Yes Medications and Allergies Home Medications Medication Instructions Recorded Confirmed Type Acetaminophen Tab [Tylenol] 1,000 mg PO Q6HR PRN 12/29/23 11/03/24 History Carbidopa-Levodopa 25-100 mg 1 each PO HS 12/29/23 11/03/24 History [Sinemet 25-100 mg] Cetirizine HCl 10 mg PO QAM 12/29/23 11/03/24 History PARoxetine [Paxil] 10 mg PO QAM 12/29/23 11/03/24 History Pantoprazole [Protonix] 40 mg PO QAM 12/29/23 11/03/24 History lisinopriL [Zestril] 20 mg PO QAM 12/29/23 11/03/24 History Aspirin [Adult Low Dose Aspirin EC] 81 mg PO DAILY 01/01/24 11/03/24 History Atorvastatin Calcium [Lipitor] 80 mg PO DAILY #90 tab 01/02/24 11/03/24 Rx Ticagrelor [Brilinta] 90 mg PO BID #180 tab 01/02/24 11/03/24 Rx metFORMIN HCL 1,000 mg PO BID 10/31/24 11/03/24 History Cyclobenzaprine [Flexeril] 5 mg PO TID #21 tablet 11/04/24 Rx Gabapentin [Neurontin] 300 mg PO TID #30 cap 11/04/24 Rx HYDROcodone/APAP 7.5-325MG [[place] 1 tab PO Q6HR PRN #28 tab 11/04/24 Rx 7.5-325] Sennosides/Docusate Sodium [[place] 1 each PO DAILY #20 capsule 11/04/24 Rx Plus 8.6-50 mg Softgel] cefaDROXiL [Duricef] 500 mg PO Q12HR 5 Days #10 cap 11/04/24 Rx Allergies Allergy/AdvReac Type Severity Reaction Status Date / Time No Known Allergies Allergy Verified 11/03/24 06:16 Physical Exam Vitals: Vital Signs Temp Pulse Pulse Resp BP Pulse Ox 11/05/24 04:00 98.7 F 94 17 178/83 94 L 11/05/24 02:00 92 17 11/05/24 00:00 98.4 F 95 17 180/79 94 L 11/04/24 21:00 98.6 F 93 17 151/67 96 11/04/24 19:42 98.6 F 95 16 149/64 93 L 11/04/24 18:00 152/56 11/04/24 13:44 99.2 F 96 18 180/82 93 L 11/04/24 12:38 60 82/43 Intake and Output 11/04/24 11/05/24 11/05/24 22:59 06:59 14:59 Intake Total 360 Output Total 500 320 Balance -140 -320 Intake: Oral 360 Output: Urine 500 320 Other: Voiding Method Urinal Urinal # Voids 2 1 Weight 114 kg Results 11/04/24 04:28 11/04/24 04:28 Cardiac Enzymes 11/04/24 11/04/24 11/04/24 Range/Units 13:00 16:35 20:51 Troponin I 0.108 H* 0.109 H* 0.105 H* (0.000-0.034) ng/mL Current Medications Generic Name Dose Route Start Last Admin Trade Name Freq PRN Reason Stop Dose Admin Acetaminophen 650 mg 11/03/24 13:00 11/05/24 06:35 Acetaminophen Tab 325 Mg Tab PO 12/03/24 12:59 650 mg Q6HR ESTEFANY Administration Hydrocodone Bitart/Acetaminophen 1 each 11/03/24 10:48 11/05/24 02:14 Hydrocodone/Apap 5-325mg 1 Each Tab PO 12/03/24 10:47 1 each Q6HR PRN Administration Pain Scale 4 - 6 Hydrocodone Bitart/Acetaminophen 1 each 11/03/24 10:48 11/04/24 18:12 Hydrocodone/Apap 10-325mg 1 Each Tab PO 12/03/24 10:47 1 each Q6H PRN Administration Pain Scale 7 - 10 Atorvastatin Calcium 80 mg 11/03/24 17:30 11/05/24 08:21 Atorvastatin 80 Mg Tab PO 80 mg DAILY ESTEFANY Administration Carbidopa/Levodopa 1 each 11/03/24 21:00 11/04/24 21:35 Carbidopa-Levodopa 25-100 Mg 1 Each Tab PO 1 each HS ESTEFANY Administration Cyclobenzaprine HCl 5 mg 11/03/24 10:48 11/04/24 23:07 Cyclobenzaprine 5 Mg Tab PO 12/03/24 10:47 5 mg TID PRN Administration Muscle Spasm Dextrose/Water 25 ml 11/03/24 16:59 Dextrose 50% Syringe 50 Ml IVP PER PROTOCOL PRN Hypoglycemia Protocol Dextrose/Water 50 ml 11/03/24 16:59 Dextrose 50% Syringe 50 Ml IVP PER PROTOCOL PRN Hypoglycemia Protocol Gabapentin 300 mg 11/03/24 16:00 11/05/24 08:21 Gabapentin 300 Mg Cap PO 12/03/24 15:59 300 mg TID ESTEFANY Administration Hydromorphone HCl 0.5 mg 11/03/24 10:48 11/04/24 15:54 Hydromorphone 0.5 Mg/0.5 Ml Syringe IVP 12/03/24 10:47 0.5 mg Q3HR PRN Administration Pain Scale 4 - 6 Hydromorphone HCl 1 mg 11/03/24 10:48 11/03/24 15:08 Hydromorphone 1 Mg/Ml 1 Ml Syringe IVP 12/03/24 10:47 1 mg Q3HR PRN Administration Pain Scale of 7 - 10 Lactated Ringer's 1,000 mls @ 20 mls/hr 11/03/24 06:04 11/05/24 06:36 Lactated Ringers IV 12/03/24 06:03 20 mls/hr .Q24H ESTEFANY Administration Insulin Aspart 0 unit 11/03/24 17:30 11/05/24 06:32 Insulin Aspart (Novolog) 100 Unit/Ml Vial SQ Not Given AC-TID ESTEFANY Protocol Lidocaine HCl 0.1 ml 11/03/24 06:04 Lidocaine 1% (10mg/Ml) For Iv Start INTRADERMA 12/03/24 06:03 PER PROTOCOL PRN IV Start Lisinopril 20 mg 11/03/24 17:30 11/05/24 08:21 Lisinopril 20 Mg Tab PO 20 mg QAM ESTEFANY Administration Magnesium Hydroxide 2,400 mg 11/03/24 10:48 Magnesium Hydroxide 2,400 Mg/30 Ml Cup PO 12/03/24 10:47 DAILY PRN Constipation Metformin HCl 1,000 mg 11/03/24 17:30 11/05/24 06:35 Metformin 500 Mg Tab PO 1,000 mg AC-BID ESTEFANY Administration Ondansetron HCl 4 mg 11/03/24 10:48 Ondansetron 4 Mg/2 Ml Vial IVP 12/03/24 10:47 Q8HR PRN Nausea And Vomiting Pantoprazole Sodium 40 mg 11/03/24 17:30 11/05/24 06:35 Pantoprazole 40 Mg Tablet PO 40 mg AC-BRKFST ESTEFANY Administration Paroxetine HCl 10 mg 11/03/24 17:30 11/05/24 08:21 Paroxetine 10 Mg Tab PO 10 mg QAM ESTEFANY Administration Senna/Docusate Sodium 2 each 11/03/24 10:48 Sennosides-Docusate Sodium 1 Each Tab PO 12/03/24 10:47 DAILY PRN Constipation Intake and Output 11/04/24 11/05/24 11/05/24 22:59 06:59 14:59 Intake Total 360 Output Total 500 320 Balance -140 -320 Intake: Oral 360 Output: Urine 500 320 Other: Voiding Method Urinal Urinal # Voids 2 1 Weight 114 kg 11/04/24 04:28 11/04/24 04:28
[2024-11-05] MEDS: ISOSORBIDE MONONITRATE ER 30 MG TAB.ER.24H PO SCH (12:06)
[2024-11-05 16:20] LABS: Glucose,Whole Blood 175 mg/dL (70-110)
--- NOTE | 2024-11-05 16:31 | P.PN ---
Progress Note - Text Progress Note Date: 11/05/24 - Chief Complaint Low back pain - History of Present Illness Very pleasant 68-year-old patient, follows with Dr. Frannie Snell. Chronic stable medical conditions include diabetes, hyperlipidemia, hypertension, BPH, restless leg syndrome, peptic ulcer disease. CAD with stent. Patient is at low back pain going on for some time. Pain was radiating down both legs. Causing neurogenic claudication. Weakness. Had failed outpatient conservative management. Patient underwent surgical intervention to include laminectomy instrumentation and fusion by Dr. Juares yesterday. I saw the patient today. Having some pain. Did tolerate his diet. No nausea vomiting. Did walk in the morning. When I came to the room patient had just moved from the bed to the chair. [place] extremely dizzy and did break out in a sweat. No chest pain. I ordered an EKG that showed nonspecific ST-T wave changes. Serial troponins were ordered. Telemetry was placed. Cardiology was consulted. Patient blood pressure with episode was about 80 systolic. November 05: Patient blood pressures have been good. Very small positive troponin. With no rise and fall. [place] to be from hypertension. No acute cardiac event. Per cardiology patient to be put on aspirin and hold of Brilinta. 2D echo has been ordered. No chest pain. Patient having pain at his operative site. Active Medications Acetaminophen (Acetaminophen Tab 325 Mg Tab) 650 mg PO Q6HR [facility] Stop: 12/03/24 12:59 Last Admin: 11/05/24 15:39 Dose: Not Given Hydrocodone Bitart/Acetaminophen (Hydrocodone/Apap 5-325mg 1 Each Tab) 1 each PO Q6HR PRN PRN Reason: Pain Scale 4 - 6 Stop: 12/03/24 10:47 Last Admin: 11/05/24 02:14 Dose: 1 each Hydrocodone Bitart/Acetaminophen (Hydrocodone/Apap 10-325mg 1 Each Tab) 1 each PO Q6H PRN PRN Reason: Pain Scale 7 - 10 Stop: 12/03/24 10:47 Last Admin: 11/05/24 13:53 Dose: 1 each Aspirin (Aspirin 81 Mg) 81 mg PO DAILY [facility] Atorvastatin Calcium (Atorvastatin 80 Mg Tab) 80 mg PO DAILY [facility] Last Admin: 11/05/24 08:21 Dose: 80 mg Carbidopa/Levodopa (Carbidopa-Levodopa 25-100 Mg 1 Each Tab) 1 each PO HS [facility] Last Admin: 11/04/24 21:35 Dose: 1 each Cyclobenzaprine HCl (Cyclobenzaprine 5 Mg Tab) 5 mg PO TID PRN PRN Reason: Muscle Spasm Stop: 12/03/24 10:47 Last Admin: 11/04/24 23:07 Dose: 5 mg Dextrose/Water (Dextrose 50% Syringe 50 Ml) 25 ml IVP PER PROTOCOL PRN; Protocol PRN Reason: Hypoglycemia Dextrose/Water (Dextrose 50% Syringe 50 Ml) 50 ml IVP PER PROTOCOL PRN; Protocol PRN Reason: Hypoglycemia Gabapentin (Gabapentin 300 Mg Cap) 300 mg PO TID [facility] Stop: 12/03/24 15:59 Last Admin: 11/05/24 08:21 Dose: 300 mg Hydromorphone HCl (Hydromorphone 0.5 Mg/0.5 Ml Syringe) 0.5 mg IVP Q3HR PRN PRN Reason: Pain Scale 4 - 6 Stop: 12/03/24 10:47 Last Admin: 11/04/24 15:54 Dose: 0.5 mg Hydromorphone HCl (Hydromorphone 1 Mg/Ml 1 Ml Syringe) 1 mg IVP Q3HR PRN PRN Reason: Pain Scale of 7 - 10 Stop: 12/03/24 10:47 Last Admin: 11/03/24 15:08 Dose: 1 mg Lactated Ringer's (Lactated Ringers) 1,000 mls @ 20 mls/hr IV .Q24H [facility] Stop: 12/03/24 06:03 Last Admin: 11/05/24 06:36 Dose: 20 mls/hr Insulin Aspart (Insulin Aspart (Novolog) 100 Unit/Ml Vial) 0 unit SQ AC-TID [facility]; Protocol Last Admin: 11/05/24 12:07 Dose: Not Given Isosorbide Mononitrate (Isosorbide Mononitrate Er 30 Mg Tab.Er.24h) 30 mg PO DAILY [facility] Last Admin: 11/05/24 12:06 Dose: 30 mg Lidocaine HCl (Lidocaine 1% (10mg/Ml) For Iv Start) 0.1 ml INTRADERMA PER PROTOCOL PRN PRN Reason: IV Start Stop: 12/03/24 06:03 Lisinopril (Lisinopril 20 Mg Tab) 20 mg PO QAM [facility] Last Admin: 11/05/24 08:21 Dose: 20 mg Magnesium Hydroxide (Magnesium Hydroxide 2,400 Mg/30 Ml Cup) 2,400 mg PO DAILY PRN PRN Reason: Constipation Stop: 12/03/24 10:47 Metformin HCl (Metformin 500 Mg Tab) 1,000 mg PO AC-BID [facility] Last Admin: 11/05/24 06:35 Dose: 1,000 mg Ondansetron HCl (Ondansetron 4 Mg/2 Ml Vial) 4 mg IVP Q8HR PRN PRN Reason: Nausea And Vomiting Stop: 12/03/24 10:47 Pantoprazole Sodium (Pantoprazole 40 Mg Tablet) 40 mg PO AC-BRKFST [facility] Last Admin: 11/05/24 06:35 Dose: 40 mg Paroxetine HCl (Paroxetine 10 Mg Tab) 10 mg PO QAM [facility] Last Admin: 11/05/24 08:21 Dose: 10 mg Senna/Docusate Sodium (Sennosides-Docusate Sodium 1 Each Tab) 2 each PO DAILY PRN PRN Reason: Constipation Stop: 12/03/24 10:47 Social history: Does not smoke. Alcohol occasionally. . Retired [employer]. Physical examination: VITAL SIGNS: 98.3, 102, 16, 1 9381, 92% room air GENERAL: BMI 33.5, resting in bed EYES: Pupils equal. Conjunctiva katerina l. HEENT: External appearance of nose and ears normal, oral cavity grossly normal. NECK: JVD not raised; masses not palpable. HEART: First and second heart sounds are normal; no edema. LUNGS: Respiratory rate normal; clear to auscultation. ABDOMEN: Soft, nontender, liver spleen not palpable, no masses palpable. PSYCH: Alert and oriented x3; mood and affect katerina l. MUSCULOSKELETAL:No Clubbing/cyanosis;muscles-grossly intact. Dressing over the incision site INVESTIGATIONS, reviewed in the clinical context: November 04: White count 10.1 hemoglobin 12.1 platelets 249 sodium 138 potassium 4.1 creatinine 1.36 EKG tracing personally reviewed by me-normal sinus rhythm. Nonspecific T wave changes 1 aVL V6 Troponin I: 0.108, 0.109, 0.105 Previous labs: November 01: White count 6.4 hemoglobin 13.8 potassium 4.7 creatinine 1.2 Assessment plan: -Acute episode of hypotension with dizziness perspiration. No chest pain. EKG showed some T wave changes. Slight bump in troponin. Serial troponin. Telemetry. Being followed by cardiology. Aspirin added. Continue to hold Brilinta. 2D echo ordered -Diabetes mellitus type 2 on oral hypoglycemic Metformin. Diabetic diet -Essential hypertension, currently elevated because of pain Zestril 20 mg daily. -Hyperlipidemia Lipitor 80 mg a day -Restless leg syndrome Sinemet 2501 tablet nightly -Anxiety Paxil 10 mg a day -Chronic, peptic ulcer disease Protonix -Full code Continue current medication treatment plan. Pending 2D echo. Otherwise medically stable probably could be discharged. Blood pressure from pain. Thank you Dr. Juares Past Medical History Past Medical History: Diabetes Mellitus, Hyperlipidemia, Hypertension, Osteoarthritis (OA), Pneumonia, Prostate Disorder, Syncope Additional Past Medical History / Comment(s): Recent test last week, Dec 21- showed leaking valve, arthritis to back, enlarged prostate, "I passed out before they dicovered I had a blockage to my caratid artery 2 years ago, NIDDM , peptic ulcer,restless legs. History of Any Multi-Drug Resistant Organisms: None Reported Past Surgical History: Back Surgery, Heart Catheterization With Stent Additional Past Surgical History / Comment(s): Bx of prostate, Lt carotid endarterectomy. Past Anesthesia/Blood Transfusion Reactions: No Reported Reaction Additional Past Anesthesia/Blood Transfusion Reaction / Comm: no blood tx hx Date of Last Stent Placement:: 12/2023 Smoking Status: Never smoker
[2024-11-05 20:10] LABS: Glucose,Whole Blood 139 mg/dL (70-110)
[2024-11-05] MEDS: ONDANSETRON 4 MG/2 ML VIAL IVP PRN (22:38)
[2024-11-06 06:02] LABS: Glucose,Whole Blood 131 mg/dL (70-110)
--- NOTE | 2024-11-06 09:10 | CA ---
Transthoracic Echo Report Name: Renzo Jones Age: 68 Gender: M : 1955 Exam Date: 11/05/2024 12:35 Exam Location: [place] [facility] Ht (in): 71 Wt (lb): 240 Ordering Physician: Reuben Myles DO ([email or web address]) Attending/Referring Phys: Intermission Coordinator Natalie Chen RDCS Procedure CPT: Indications: elevated troponins Cardiac Hx: Technical Quality: Fair Contrast 1: Total Dose (mL): Contrast 2: Total Dose (mL): MEASUREMENTS (Male / Female) Normal Values 2D ECHO LV Diastolic Diameter PLAX 4.4 cm 4.2 - 5.9 / 3.9 - 5.3 cm LV Systolic Diameter PLAX 2.8 cm IVS Diastolic Thickness 1.2 cm 0.6 - 1.0 / 0.6 - 0.9 cm LVPW Diastolic Thickness 1.2 cm 0.6 - 1.0 / 0.6 - 0.9 cm LV Relative Wall Thickness 0.5 RV Internal Dim ED PLAX 3.2 cm LA Systolic Diameter LX 3.9 cm 3.0 - 4.0 / 2.7 - 3.8 cm LA Volume 63.0 cm??? 18 - 58 / 22 - 52 cm??? LA Volume Index 26.6 cm???/m??? 16 - 28 cm???/m??? M-MODE Aortic Root Diameter MM 3.3 cm LA Systolic Diameter MM 1.9 cm LA Ao Ratio MM 0.6 AV Cusp Separation MM 2.3 cm DOPPLER MV Area PHT 11.0 cm??? Mitral E Point Velocity 115.9 cm/s Mitral A Point Velocity 112.6 cm/s Mitral E to A Ratio 1.0 MV Deceleration Time 68.9 ms TR Peak Velocity 249.3 cm/s TR Peak Gradient 24.9 mmHg Right Ventricular Systolic Press 29.9 mmHg FINDINGS Left Ventricle Left ventricular ejection fraction is estimated at 55-60 %. Left ventricular cavity size normal. Mildly increased septal wall thickness. Normal left ventricular wall motion. Right Ventricle Normal right ventricular size. Right ventricular systolic pressure within normal limits. Right Atrium Normal right atrial size. No right atrial thrombus or mass seen. Left Atrium Mildly increased left atrial volume. Mildly increased left atrial area. Mitral Valve Structurally normal mitral valve. Trace to mild mitral regurgitation. Aortic Valve Trileaflet aortic valve. No aortic valve stenosis or regurgitation. Tricuspid Valve Structurally normal tricuspid valve. Mild tricuspid regurgitation. Pulmonic Valve Pulmonic valve not well visualized. No pulmonic regurgitation. Pericardium No pericardial or pleural effusion. Aorta Normal size aortic root and proximal ascending aorta. CONCLUSIONS Normal LV function Previewed by: Dr. Palomo Shukla MD (Electronically Signed) Final Date: 06 November 2024 09:09
[2024-11-06 11:37] LABS: Glucose,Whole Blood 175 mg/dL (70-110)
[2024-11-06] MEDS: ASPIRIN 81 MG PO SCH (12:08)
[2024-11-06 12:13] VITALS: BP 164/69; TEMP 98
--- NOTE | 2024-11-06 12:45 | P.PN ---
Subjective Progress Note Date: 11/06/24 Reason for Consult (text): Elevated troponins History of present illness: This is a 68-year-old male patient of Dr. Shultz with past medical history of CAD status post stenting of the LAD and known intermediate disease involving RCA, hypertension, dyslipidemia, diabetes mellitus type 2, carotid atherosclerosis status post left carotid endarterectomy, valvular heart disease with mitral regurgitation, overweight. We have been asked to evaluate the patient for elevated troponins. Patient presented to the hospital underwent surgery on his lumbar spine T12-L3 on 11/03. Patient states that yesterday he developed a bad spasms in his back and also into his legs and it became so bad that his blood pressure dropped and he felt like he was going to pass out. Troponins were obtained and were elevated and thus this consult was generated. Patient denies having any chest pain at this time. We have not started patient on heparin due to recent surgery. We will start aspirin if okay with orthopedic surgery. Blood pressure 201/87, heart rate 92, pulse ox 93% on room air. -EKG: Sinus rhythm with no acute ST changes. -Laboratory studies: WBC 10.1, hemoglobin 12.1. Troponin 0.108, 0.109 and 0.105. -Home cardiac medications: Aspirin 81 mg daily, atorvastatin 80 mg at bedtime, lisinopril 20 mg daily, Brilinta 90 mg twice daily. -Cardiac catheterization performed 01/01/2024 found disease involving the proximal and mid LAD and intermediate disease involving the RCA status post stent of the mid LAD and stent of the proximal LAD. -Echocardiogram performed 12/19/2023 in the office revealed EF of 55%, mild concentric left ventricular hypertrophy, mild to moderate mitral regurgitation, trace to mild tricuspid regurgitation, PASP 21 mmHg. Mild to moderate regurgitation. 11/06/2024 Patient seen and examined. Patient denies having any chest pain, no l ightheadedness or dizziness. Blood pressure 166/81, heart rate in the 70s, pulse ox 95% on room air. Echocardiogram reveals EF of 55 to 60%. Physical examination: Gen: This is a 68-year-old male in no acute distress VS: reviewed HEENT: Head is atraumatic, normocephalic. Pupils equal, round. Sclerae is anicteric. NECK: Supple. No JVD. LUNGS: Clear to auscultation. No wheezes or rhonchi. No intercostal retractions. HEART: Regular rate and rhythm. No murmur. ABDOMEN: Soft No tenderness. EXTREMITIES: No pedal edema. No calf tenderness. NEUROLOGICAL: Patient is awake, alert and oriented x3. Assessment: Elevated troponin most likely due to episode of hypotension Stenosis T12-L3 status post surgery on 11/03 History of CAD with previous stenting of the LAD 01/01/2024 Hypertension Dyslipidemia Diabetes mellitus type 2 Carotid atherosclerosis status post left carotid endarterectomy Mitral regurgitation Overweight Plan: Continue patient's home cardiac medications Continue patient on aspirin 81 mg daily for now if cleared by orthopedics. Will hold on Brilinta. Patient is cleared for discharge from cardiology and may follow-up in the office with Dr. Shultz in 2 weeks. Nurse practitioner note has been reviewed, I agree with documented findings and plan of care. Patient was seen and examined. Objective - Vital Signs Vital signs: Vital Signs Temp 98.1 F 11/06/24 08:00 Pulse 79 11/06/24 08:00 Resp 16 11/06/24 08:00 BP 166/81 11/06/24 08:00 Pulse Ox 95 11/06/24 08:00 FiO2 Intake & Output 11/05/24 11/06/24 11/06/24 18:59 06:59 18:59 Weight 113 kg Other: Voiding Method Urinal Urinal # Voids 0 - Labs CBC & Chem 7: 11/04/24 04:28 11/04/24 04:28 Labs: Abnormal Lab Results - Last 24 Hours (Table) 11/05/24 11/05/24 11/05/24 Range/Units 11:49 16:18 20:09 POC Glucose (mg/dL) 133 H 175 H 139 H (70-110) mg/dL 11/06/24 Range/Units 06:01 POC Glucose (mg/dL) 131 H (70-110) mg/dL
[2024-11-06 14:27] VITALS: PULSE 94
--- NOTE | 2024-11-06 17:43 | P.PN ---
Progress Note - Text Progress Note Date: 11/06/24 - Chief Complaint Low back pain - History of Present Illness Very pleasant 68-year-old patient, follows with Dr. Frannie Snell. Chronic stable medical conditions include diabetes, hyperlipidemia, hypertension, BPH, restless leg syndrome, peptic ulcer disease. CAD with stent. Patient is at low back pain going on for some time. Pain was radiating down both legs. Causing neurogenic claudication. Weakness. Had failed outpatient conservative management. Patient underwent surgical intervention to include laminectomy instrumentation and fusion by Dr. Juares yesterday. I saw the patient today. Having some pain. Did tolerate his diet. No nausea vomiting. Did walk in the morning. When I came to the room patient had just moved from the bed to the chair. [place] extremely dizzy and did break out in a sweat. No chest pain. I ordered an EKG that showed nonspecific ST-T wave changes. Serial troponins were ordered. Telemetry was placed. Cardiology was consulted. Patient blood pressure with episode was about 80 systolic. November 05: Patient blood pressures have been good. Very small positive troponin. With no rise and fall. [place] to be from hypertension. No acute cardiac event. Per cardiology patient to be put on aspirin and hold of Brilinta. 2D echo has been ordered. No chest pain. Patient having pain at his operative site. November 06: Up and about. Pain well-controlled. No chest pain. Cleared by c ardiology. Patient to remain off Brilinta. Follow-up with his addictions counselor assistant outpatient. Social history: Does not smoke. Alcohol occasionally. . Retired materials management. Physical examination: VITAL SIGNS: 98, 77, 94, 16, 164 x 69, 95% room air GENERAL: BMI 33.5, comfortable EYES: Pupils equal. Conjunctiva katerina l. HEENT: External appearance of nose and ears normal, oral cavity grossly normal. NECK: JVD not raised; masses not palpable. HEART: First and second heart sounds are normal; no edema. LUNGS: Respiratory rate normal; clear to auscultation. ABDOMEN: Soft, nontender, liver spleen not palpable, no masses palpable. PSYCH: Alert and oriented x3; mood and affect katerina l. MUSCULOSKELETAL:No Clubbing/cyanosis;muscles-grossly intact. Dressing over the incision site INVESTIGATIONS, reviewed in the clinical context: 2D echo: EF 55 to 60% November 04: White count 10.1 hemoglobin 12.1 platelets 249 sodium 138 potassium 4.1 creatinine 1.36 EKG tracing personally reviewed by me-normal sinus rhythm. Nonspecific T wave changes 1 aVL V6 Troponin I: 0.108, 0.109, 0.105 Previous labs: November 01: White count 6.4 hemoglobin 13.8 potassium 4.7 creatinine 1.2 Assessment plan: -Acute episode of hypotension with dizziness perspiration. Resulting in some troponinemia.. Serial troponin. Telemetry. Seen by cardiology. Cleared for discharge Aspirin added. Brilinta discontinued 2D echo no wall motion abnormality -Diabetes mellitus type 2 on oral hypoglycemic Metformin. Diabetic diet -Essential hypertension, currently elevated because of pain Zestril 20 mg daily. -Hyperlipidemia Lipitor 80 mg a day -Restless leg syndrome Sinemet 2501 tablet nightly -Anxiety Paxil 10 mg a day -Chronic, peptic ulcer disease Protonix -Full code Discussed with patient. Doing well. Medically stable otherwise. Thank you Dr. Juares Past Medical History Past Medical History: Diabetes Mellitus, Hyperlipidemia, Hypertension, Osteoarthritis (OA), Pneumonia, Prostate Disorder, Syncope Additional Past Medical History / Comment(s): Recent test last week, Dec 21- showed leaking valve, arthritis to back, enlarged prostate, "I passed out before they dicovered I had a blockage to my caratid artery 2 years ago, NIDDM , peptic ulcer,restless legs. History of Any Multi-Drug Resistant Organisms: None Reported Past Surgical History: Back Surgery, Heart Catheterization With Stent Additional Past Surgical History / Comment(s): Bx of prostate, Lt carotid endarterectomy. Past Anesthesia/Blood Transfusion Reactions: No Reported Reaction Additional Past Anesthesia/Blood Transfusion Reaction / Comm: no blood tx hx Date of Last Stent Placement:: 12/2023 Smoking Status: Never smoker
== END 2024-11-06 15:33 | disposition home or self-care (01) ==
LOC: OR 05:38 → 4SSUR 12:10 → 3SCARD 11-04 20:55 → OR 11-06 15:33
PROVIDERS: ATTEND Orthopaedic Surgery
DX: M48.05 Spinal stenosis, thoracolumbar region (principal); M47.26 Other spondylosis with radiculopathy, lumbar region; M48.062 Spinal stenosis, lumbar region with neurogenic claudication; M51.16 Intervertebral disc disorders with radiculopathy, lumbar region; M25.78 Osteophyte, vertebrae; M53.86 Other specified dorsopathies, lumbar region; E11.9 Type 2 diabetes mellitus without complications; E66.9 Obesity, unspecified; E78.5 Hyperlipidemia, unspecified; F41.9 Anxiety disorder, unspecified; G25.81 Restless legs syndrome; I10 Essential (primary) hypertension; I25.10 Atherosclerotic heart disease of native coronary artery without angina pectoris; I34.0 Nonrheumatic mitral (valve) insufficiency; N40.0 Benign prostatic hyperplasia without lower urinary tract symptoms; F17.210 Nicotine dependence, cigarettes, uncomplicated; Z68.25 Body mass index [BMI] 25.0-25.9, adult; Z79.02 Long term (current) use of antithrombotics/antiplatelets; Z79.4 Long term (current) use of insulin; Z79.82 Long term (current) use of aspirin; Z79.84 Long term (current) use of oral hypoglycemic drugs; Z79.899 Other long term (current) drug therapy; Z95.5 Presence of coronary angioplasty implant and graft; Z98.890 Other specified postprocedural states
CPT/HCPCS: 93306; 97161; 88304; 80048; 84484; 85025; 72100; 72131; 22612; 22853; 22840; 20930; 20936; 63046; C1713 ×2; J2250; J0330; J1580; J1100; J2710; J0690 ×3; J2405 ×2; J2003; J3010; J1171 ×3; J2704; J2371; J0665; J1596